=== PATIENT | female | born 1945 | race Caucasian/White ===

== ENCOUNTER 2016-11-17 10:49 | Inpatient (IN) | payer OTHER ==
[~2016-11-17] VITALS: Ht 167.6 cm; Wt 49.8 kg
[2016-11-17] MEDS ORDERED: LISI-538 PO (11:03)
[2016-11-17] MEDS ORDERED: SIMV20TA2 PO (11:03)
[2016-11-17] MEDS ORDERED: ASPI1TAB PO (11:03)
[2016-11-17] MEDS ORDERED: TOPR25TA PO (11:03)
[2016-11-17] MEDS ORDERED: AMLO5TAB2 PO (11:03)
[2016-11-17 11:41] LABS: BASO % 0.2 % (0.0-1.0); EOS # 0.2 K/mm3 (0.0-0.50); EOS % 1.3 % (0.0-3.0); LARGE UNSTAINED CELL # 0.1 K/mm3 (0.0-0.4); LARGE UNSTAINED CELL % 0.9 % (0.0-4.0); LYMPH # 1.1 K/mm3 (1.5-4.5); MEAN CORPUSCULAR HEMOGLOBIN 29.4 pg (27.0-33.0); MEAN CORPUSCULAR VOLUME 89.1 fl (80.0-96.0); MONO # 0.5 K/mm3 (0.0-0.8); MONO % 4.2 % (0.0-5.0); NEUTROPHILS # 9.7 K/mm3 (1.8-7.7); NEUTROPHILS % 84.2 % (36.0-66.0); PLATELET COUNT, AUTOMATED 246 k/mm3 (150-450); RED CELL DISTRIBUTION WIDTH 14.2 % (11.5-14.5); WHITE BLOOD COUNT 11.5 K/mm3 (4.0-10.0)
[2016-11-17 12:02] LABS: ALBUMIN 3.2 GM/DL (3.2-5.2); ALBUMIN/GLOBULIN RATIO 0.82 (1.00-1.93); ALKALINE PHOSPHATASE 73 U/L (45-117); ALT/SGPT 19 U/L (12-78); ANION GAP 7 MEQ/L (8-16); AST/SGOT 17 U/L (15-37); BILIRUBIN,DIRECT 0.1 MG/DL (0.0-0.2); BILIRUBIN,TOTAL 0.6 MG/DL (0.2-1.0); BLOOD UREA NITROGEN 11 MG/DL (7-18); CALCIUM LEVEL 9.4 MG/DL (8.8-10.2); CARBON DIOXIDE LEVEL 25 MEQ/L (21-32); CHLORIDE LEVEL 105 MEQ/L (98-107); CREATININE FOR GFR 0.57 MG/DL (0.55-1.02); GLOMERULAR FILTRATION RATE > 60.0 (>39); GLUCOSE, FASTING 92 MG/DL (83-110); POTASSIUM SERUM 3.4 MEQ/L (3.5-5.1); SODIUM LEVEL 137 MEQ/L (136-145); TOTAL PROTEIN 7.1 GM/DL (6.4-8.2)
[2016-11-17] MEDS ORDERED: NS 500 ML IV ONE (12:45)
[2016-11-17] MEDS ORDERED: hydrALAZINE INJ 20 MG/ML VIAL IV ONE (13:00)
[2016-11-17] MEDS ORDERED: NS 1,000 ML IV SCH (13:45)
[2016-11-17] MEDS ORDERED: SIMVASTATIN 20 MG TAB PO ONE (13:45)
--- NOTE | 2016-11-17 14:20 | HPE ---
DATE OF ADMISSION: 11/17/2016 71-year-old white female who presents to the emergency room with rectal bleeding. Symptoms began last evening. She had several bright red bloody bowel movements yesterday. She has not had any today. She does have abdominal cramping with the bowel movements. No fever or chills. No one else at home is sick. She had a similar episode about 6 weeks ago. She presented to [facility] and was sent to a [facility]. She was there for several days but she said nothing was done. She did not have a colonoscopy. The bleeding stopped spontaneously. Her white count is 11,500. Hemoglobin and hematocrit is 12.7 and 38. She is mildly orthostatic in the ER, but her blood pressure is elevated. She does have a history of hypertension. ALLERGIES: No known allergies to medication. MEDICATIONS: - Norvasc 5 mg a day - baby aspirin - lisinopril 40 mg - metoprolol 50 mg XL daily - simvastatin 20 mg PAST MEDICAL HISTORY: Hysterectomy. Fractured left hip. She says she has stents in both legs for peripheral vascular disease. She has had breast biopsies for benign disease. Cervical spine surgery. Hypertension. Hyperlipidemia. Previous gastrointestinal (GI) bleed 6 weeks ago. FAMILY HISTORY: This was not obtained. REVIEW OF SYSTEMS: GENERAL: She feels a little bit lightheaded when she stands. HEENT: Lightheadedness otherwise negative. She wears dentures. CARDIOPULMONARY: Negative. Despite her history of peripheral vascular disease, she has no known history of known coronary disease. She is not complaining of any chest pain or angina-like symptoms. She has been a smoker but denies shortness of breath. GASTROINTESTINAL (GI): As noted in the history of present illness. GENITOURINARY (): Negative. MUSCULOSKELETAL: Negative. VASCULAR: She does have stents in both legs. HEMATOLOGIC: Negative. PSYCH: Negative. DERM: Negative. ENDOCRINE: Negative. PHYSICAL EXAMINATION: VITAL SIGNS: 205/85, pulse is 84, respirations 16. GENERAL APPEARANCE: 71-year-old white female. No distress. She is very thin. HEENT: Sclerae anicteric. Conjunctivae without injection. Oropharynx is unremarkable. She wears dentures. CARDIAC: Was regular. She was not tachy. CHEST: Was clear to auscultation. ABDOMEN: She has got some left lower quadrant tenderness. No peritoneal signs. RECTAL EXAM: There was no stool in the rectal vault. She is wearing a pad that was stained with blood. EXTREMITIES: Are warm peripherally. Distal pulses are diminished in the feet. No clubbing, cyanosis or edema. NEURO: Intact. IMPRESSION/PLAN: 1. GI bleed. I suspect probably diverticular bleed. Dr. Pickard has been consulted. She appears to be hemodynamically stable and bleeding has seemed to have stopped. There is a shortage of PCU beds so we will be sending her to medical/surgical floor with close observation. 2. Hypertension. I have continued only her beta justin for now. 3. Peripheral vascular disease. 4. Hyperlipidemia. She continues on a statin. 5. Smoking history. The patient currently is still a smoker. She denies any pulmonary symptoms.
[2016-11-17 15:00] VITALS: BP 210/80
[2016-11-17 15:08] LABS: MEAN CORPUSCULAR HEMOGLOBIN 29.5 pg (27.0-33.0); MEAN CORPUSCULAR HGB CONC 33.3 g/dl (32.0-36.5); MEAN CORPUSCULAR VOLUME 88.6 fl (80.0-96.0); RED CELL DISTRIBUTION WIDTH 14.1 % (11.5-14.5); WHITE BLOOD COUNT 10.7 K/mm3 (4.0-10.0)
[2016-11-17] MEDS: METOPROLOL SUCC (TopROL XL) 50MG **XL** TAB PO SCH (15:26)
[2016-11-17] MEDS: KCL 20MEQ in NS 1000ML 1,000 ML IV SCH (16:04)
[2016-11-17] MEDS: LISINOPRIL 20 MG TAB PO SCH (16:04)
[2016-11-17 16:15] VITALS: BP 200/75
[2016-11-17 17:00] VITALS: BP 145/60
[2016-11-17 18:00] VITALS: BP 175/60
[2016-11-17] MEDS ORDERED: GOLYTELY SOLN 4000 ML BTL PO ONE (18:15)
--- NOTE | 2016-11-17 20:50 | CR ---
DATE OF CONSULTATION: 11/17/2016 REASON FOR CONSULTATION: GI bleed. HISTORY OF PRESENT ILLNESS: The patient is a 71-year-old female who presents to the ER with the rectal bleeding and lower abdominal crampy abdominal pains and weakness. She originally went to [facility] about 6 weeks ago. She was found have to GI bleeding and she was sent to [place] for colonoscopy. They kept here there for 3 days, never did any colonoscopy, wanted to wait 6 weeks to attempt it, so she was discharged home without any procedures. She did have a CT scan done at the time. She denies them telling her about any type of colitis or masses or any abnormalities on the CT scan. Within the last 6 weeks, she has not had any other problems. She had no nausea, vomiting, and no abdominal pain with an episode. Starting 2 days ago she started to have couple episodes of diarrhea, that turned into bright red bloody stools yesterday, and then she started having crampy abdominal pains last evening so she came into the emergency room for evaluation. In the ER her hemoglobin is at 12.7. She has had one more episode of bloody stools since she has been here in the hospital, they were very small and her stools yesterday were more of a maroon color and today is was bright red. Abdominal pains mainly in the lower abdomen, but it is crampy pain, nothing sharp no fevers, no chills. No problems with urination. No previous abdominal surgeries other than hysterectomy. No previous colonoscopy. She does drink a pot or two of coffee a day and she does smoke. But she denies any other risk factors for an upper GI bleed. ALLERGIES: None. MEDICATIONS: Please see med rec. PAST MEDICAL HISTORY: Hyperlipidemia, hypertension. PAST SURGICAL HISTORY: Hysterectomy, fracture left hip repair, bilateral femoral artery stents, breast biopsies, cervical spine surgery. FAMILY HISTORY: Noncontributory. SOCIAL HISTORY: Smokes pack a day. Denies any drug, alcohol abuse. PHYSICAL EXAMINATION: General : Alert and oriented times three. No acute distress. Vitals: Temperature 95, pulse 74, respirations 18, blood pressure 175/60, pulse ox 97% room air. HEENT: Pupils equal round react to light accommodation. Heart: S1-S2 regular rate and loss to auscultation bilaterally. Abdomen: Soft, nontender, nondistended. Bowel sounds positive. Extremities: No clubbing, cyanosis or edema. LABORATORY DATA: White count 10.7, hemoglobin 11.3, platelets 221, potassium 3.4, creatinine 0.57. ASSESSMENT/PLAN: The patient is 71-year-old female with a history of bright red blood in her stool and crampy abdominal pain presented to the ER for this bleeding. No previous history of colonoscopy. No family history of colon cancer, colon diseases. This is likely secondary to a lower rather than upper GI bleed. However with her significant history of smoking and caffeine abuse, we cannot rule out an upper GI source as well. Recommendation at this time is proceed with both upper and lower endoscopy. I have discussed the risks and benefits with the patient not limited to but including bleeding, infection, perforation. She understands and agrees and signed consent. She will be scheduled for 07:30 tomorrow morning.
[2016-11-17] MEDS: amLODIPine 10 MG TAB PO SCH (21:41)
[2016-11-17 22:00] VITALS: BP 180/72
[2016-11-18] VITALS (15 sets, daily range): BP systolic 133–195; BP diastolic 58–80
[2016-11-18] MEDS: KCL 20MEQ in NS 1000ML 1,000 ML IV SCH ×2 (01:45→11:45)
[2016-11-18 02:26] LABS: MEAN CORPUSCULAR HEMOGLOBIN 29.1 pg (27.0-33.0); MEAN CORPUSCULAR HGB CONC 32.1 g/dl (32.0-36.5); MEAN CORPUSCULAR VOLUME 90.5 fl (80.0-96.0); RED CELL DISTRIBUTION WIDTH 14.2 % (11.5-14.5); WHITE BLOOD COUNT 11.5 K/mm3 (4.0-10.0)
[2016-11-18] MEDS: LISINOPRIL 20 MG TAB PO SCH (05:56)
[2016-11-18 06:45] LABS: ANION GAP 8 MEQ/L (8-16); BLOOD UREA NITROGEN 7 MG/DL (7-18); CALCIUM LEVEL 8.3 MG/DL (8.8-10.2); CARBON DIOXIDE LEVEL 23 MEQ/L (21-32); CHLORIDE LEVEL 110 MEQ/L (98-107); CREATININE FOR GFR 0.42 MG/DL (0.55-1.02); GLOMERULAR FILTRATION RATE > 60.0 (>39); GLUCOSE, FASTING 82 MG/DL (83-110); POTASSIUM SERUM 3.6 MEQ/L (3.5-5.1); SODIUM LEVEL 141 MEQ/L (136-145)
[2016-11-18] MEDS ORDERED: MIDAZOLAM INJ 2 MG/2 ML VIAL (J2250) As Ordered ONE (07:02)
[2016-11-18] MEDS ORDERED: fentaNYL 100 MCG/2 ML INJECTION (J3010) As Ordered ONE (07:08)
[2016-11-18] MEDS ORDERED: LABETALOL HCL 100 MG/20 ML VIAL As Ordered ONE (08:14)
[2016-11-18] MEDS: amLODIPine 10 MG TAB PO SCH (09:40)
[2016-11-18] MEDS: METOPROLOL SUCC (TopROL XL) 50MG **XL** TAB PO SCH (09:42)
[2016-11-18] MEDS ORDERED: ISOVUE-370 76% 100ML VIAL (Q9967) As Ordered ONE (10:47)
--- NOTE | 2016-11-18 11:21 | RO ---
DATE OF PROCEDURE: 11/18/2016 PREOPERATIVE DIAGNOSIS: POSTOPERATIVE DIAGNOSIS: PROCEDURE: EGD, Colonoscopy with Biopsy and polypectomy SURGEON: Dr. Chavez Pickard [employer] AGENT: ANESTHESIA: IV Sedation CHIEF COMPLAINT: Hematochezia. HISTORY OF PRESENT ILLNESS: The patient is a 71-year-old female who had a recent history of bright red blood in her stool about 6 weeks ago who was seen in [facility] and sent to [place]. She was there for about 3 days and never had any endoscopy done or colonoscopy. Eventually, she was discharged home and told to have a colonoscopy 6 weeks afterwards. For the past few days, she started to have melanotic stools again and lower abdominal cramping so she came to the hospital for evaluation here and I was asked to evaluate her. Recommendation at this time is to proceed with esophagogastroduodenoscopy (EGD) and colonoscopy. The risks and the benefits of the procedure not limited to, but including bleeding, infection, perforation were discussed in detail with the patient and informed was obtained and the procedure was planned. PROCEDURE: The patient brought back to operating room eight after sufficient sedation. She was placed in left lateral decubitus position. A bite block was placed. Next, a time-out was done to confirm proper patient and proper procedure. Following that, a gastroscope was passed through the stomach into the second portion of the duodenum. There were no signs of any active bleeding or old bleeding in the duodenum. The scope was then brought back into the stomach prepyloric. There were a couple of areas that looked like healed ulcers. Otherwise, there was some mild gastritis. No other signs of any inflammation or masses in the stomach. The scope was then slowly withdrawn. There was a small hiatal hernia for about 3 cm, but no signs of irregularity of the GE junction. The scope was then removed. Next, a colonoscopy was performed. There was swelling and inflammation in the rectum starting at about 10 cm and extending up to about 35 cm. There is circumferential wall swelling, erythema and some superficial white patches. No distinct masses were identified. Biopsies were taken at 35 cm, 25 cm and 15 cm. There was also a polyp encountered at 35 cm about 5 mm in size that was taken off with a hot snare. The scope was passed all the way to level of the cecum. There were no other masses, polyps or wall irregularities encountered throughout the rest of colonoscopy. The scope was then removed. The patient was awakened from anesthesia and sent to the postanesthesia care unit (PACU) in stable condition. The plan will be to obtain a CT of abdomen and pelvis to rule out ischemic colitis and also will followup with pathology results. LAURENT
--- NOTE | 2016-11-18 12:57 | ECGEPIP ---
Stationary ECG Study [facility] Test Date: 2016-11-18 Pat Name: ARELI COPE Department: Room: [place] [address] Gender: F Header Set Up Operator: : [id number] Requested By: Jag Obrien Order Number: [id number] Reading MD: Victor Manuel Fam Measurements Intervals [place] Rate: 56 P: 74 [place]: 171 QRS: 51 QRSD: 97 T: 60 QT: 452 QTc: 440 Interpretive Statements SINUS BRADYCARDIA Comparison tracing not on file Electronically Signed On 11-18-2016 12:56:52 EDT by Victor Manuel Fam
[2016-11-18] MEDS ORDERED: **hydrALAZINE** 10 MG TAB PO SCH (13:00)
[2016-11-18 13:49] LABS: MEAN CORPUSCULAR HEMOGLOBIN 29.8 pg (27.0-33.0); MEAN CORPUSCULAR HGB CONC 33.3 g/dl (32.0-36.5); MEAN CORPUSCULAR VOLUME 89.3 fl (80.0-96.0); RED CELL DISTRIBUTION WIDTH 14.4 % (11.5-14.5); WHITE BLOOD COUNT 9.3 K/mm3 (4.0-10.0)
--- NOTE | 2016-11-18 13:53 | IPNPDOC ---
Subjective Date Seen The patient was seen on 11/18/16. Subjective Chief Complaint/HPI The patient is a 71-year-old female admitted with a reason for visit of Gi Bleed. Events since last encounter pt seen and examined, doing well, just had colonoscopy and egd done, no abd pain , no bm, no complaints Objective Physical Examination General Exam: Positive: No Acute Distress Eye Exam: Positive: PERRLA ENT Exam: Positive: Atraumatic, Mucous membr. moist/pink Chest Exam: Positive: Clear to auscultation, Normal air movement Heart Exam: Positive: Rate Normal Abdomen Exam: Positive: Normal bowel sounds, Soft Extremity Exam: Positive: Normal pulses, Negative: Clubbing, Cyanosis, Edema Assessment /Plan Problems (1) GI bleed Status: Acute Problem Text: * pt presented with history of rectal bleeding, bright red blood per rectum, she had a similar episode 6 weeks ago, CT scan was done at that time * pt states she get cramping abd pain with the bleeding but denies any abd pain today * currently hemodynamically stable, will continue to monitor * s/p EGD and colonoscopy by Dr Pickard * mild gastritis, and area of inflammation and edema in the colon, biopsies were taken and sent to pathology * CT angio is recommended to rule out ischemic colitis (2) HTN (hypertension) Status: Chronic Response to Treatment: Stable, Uncontrolled Problem Text: * pt is on metoprolol, Norvasc and lisinopril * will add hydralazine (3) HLD (hyperlipidemia) Status: Chronic Response to Treatment: Stable Problem Text: * will continue simvastatin 20mg daily (4) PVD (peripheral vascular disease) Status: Chronic Response to Treatment: Stable Problem Text: * s/p stenting in both legs (5) Tobacco abuse Status: Chronic Plan/VTE VTE Prophylaxis Ordered?: Yes VS, I&O, 24H, Fishbone Vital Signs/I&O Vital Signs Date Time Temp Pulse Resp B/P (MAP) Pulse Ox O2 Delivery O2 Flow Rate FiO2 11/18/16 12:10 97.8 55 16 185/75 (111) 99 Room Air 11/18/16 08:16 2 I&O- Last 24 Hours up to 6 AM 11/18/16 06:00 Intake Total 4100 ml Output Total 300 ml Balance 3800 ml Laboratory Data 24H LABS Laboratory Tests 2 11/18/16 06:16: Anion Gap 8, Glomerular Filtration Rate > 60.0, Blood Urea Nitrogen 7, Creatinine 0.42L, Sodium Level 141, Potassium Level 3.6, Chloride Level 110H, Carbon Dioxide Level 23, Calcium Level 8.3L CBC/BMP Laboratory Tests 11/17/16 14:15 Red Blood Count 3.82 L, Mean Corpuscular Volume 88.6, Mean Corpuscular Hemoglobin 29.5, Mean Corpuscular Hemoglobin Concent 33.3, Red Cell Distribution Width 14.1 11/18/16 01:56 Red Blood Count 3.86 L, Mean Corpuscular Volume 90.5, Mean Corpuscular Hemoglobin 29.1, Mean Corpuscular Hemoglobin Concent 32.1, Red Cell Distribution Width 14.2 11/18/16 06:16 Calcium Level 8.3 L HALEY PARR DO Nov 18, 2016 13:53
--- NOTE | 2016-11-18 14:52 | REP ---
CT ANGIOGRAM OF THE ABDOMEN: With IV contrast. HISTORY: Ischemic colitis. CT contrast dose: 100 mL of Isovue [address] TECHNIQUE: Helical scanning is acquired. 3 mm axial images are reformatted. Coronal and sagittal multiplanar re-formation images are generated. Thick slab coronal maximal intensity projection images are generated and color 3D surface rendered sequence is acquired and reviewed rotationally about the vertical axis. Curved axis multiplanar re-formation images are generated through the superior mesenteric artery and celiac axes. NONVASCULAR CT FINDINGS: Left hip is replaced. There is profound atrophy of the right kidney. The main pancreatic duct is dilated. This appears to be related to mass effect due to the abdominal aortic aneurysm. No definite pancreatic mass lesion is seen. There is marked diffuse osteopenia. Advanced degenerative disc disease is seen at the L4-5 intervertebral disc level. VASCULAR FINDINGS: There are bilateral common iliac artery stents in place. There is marked atherosclerotic irregularity throughout the aorta. The distal thoracic aorta is normal in caliber with calcific and soft plaquing. There is an infrarenal abdominal aortic aneurysm with a large amount of mural thrombus circumferentially noted. The aneurysm measures 4.3 cm in greatest anteroposterior dimension. There is aortic luminal stenosis through the aneurysm. This is 75%. There is also multifocal aortic stenosis in the suprarenal abdominal aorta which shows severe atherosclerotic plaquing and calcific irregularity and calcific plaquing as well as luminal narrowing. There is a high-grade stenosis of the right renal artery origin and an occlusion of the mid right renal artery is seen with reconstitution. The left main renal artery origin is patent without high-grade stenosis. The left common iliac artery and stent are occluded. The left external and internal iliac arteries are occluded. There appears to be reconstitution of the common femoral artery on the left although visualization of this is somewhat impaired by spray artifact in the left hip components. The right proximal external iliac artery is very stenotic due to calcific plaquing at the end of the stent. The celiac axis is patent. There is some calcific plaquing and 60% stenosis is seen at the origin of the celiac axis. The superior mesenteric axis origin shows marked stenosis, 85-90%. The superior mesenteric artery arises from the markedly irregular calcific plaquing at the narrowed suprarenal aorta. There is multifocal plaquing in the patent superior mesenteric artery. No other high-grade stenosis is seen. I do not see the origin of the inferior mesenteric artery. IMPRESSION: 1. 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 2. 85-90% stenosis at the superior mesenteric artery. 3. The YIN appears to be occluded in association with the infrarenal abdominal aortic aneurysm. Right renal artery is occluded and the right kidney is markedly atrophic. 4. Bilateral common iliac artery stents in place. Left iliac stent and left external iliac and internal iliac arteries are occluded. There is a stenosis in the proximal external iliac artery on the right at the and of the existing stent. 5. 75% stenosis of the aorta through the aneurysm. There are arterial collaterals visible in the anterior abdominal wall bilaterally. These appear to have reconstitute the left common femoral artery. Signed by Josiah Alcala MD 11/18/2016 03:18 P
[2016-11-18] MEDS: hydrALAZINE INJ 20 MG/ML VIAL IV SCH (16:08)
[2016-11-19] VITALS (11 sets, daily range): BP systolic 116–169; BP diastolic 48–87
[2016-11-19 01:39] LABS: MEAN CORPUSCULAR HEMOGLOBIN 29.8 pg (27.0-33.0); MEAN CORPUSCULAR VOLUME 90.3 fl (80.0-96.0); RED CELL DISTRIBUTION WIDTH 14.3 % (11.5-14.5); WHITE BLOOD COUNT 7.4 K/mm3 (4.0-10.0)
[2016-11-19 05:50] LABS: ANION GAP 15 MEQ/L (8-16); BLOOD UREA NITROGEN 10 MG/DL (7-18); CALCIUM LEVEL 8.4 MG/DL (8.8-10.2); CARBON DIOXIDE LEVEL 18 MEQ/L (21-32); CHLORIDE LEVEL 107 MEQ/L (98-107); CREATININE FOR GFR 0.41 MG/DL (0.55-1.02); GLOMERULAR FILTRATION RATE > 60.0 (>39); GLUCOSE, FASTING 48 MG/DL (83-110); POTASSIUM SERUM 3.4 MEQ/L (3.5-5.1); SODIUM LEVEL 140 MEQ/L (136-145)
[2016-11-19] MEDS: METOPROLOL SUCC (TopROL XL) 50MG **XL** TAB PO SCH (09:00)
[2016-11-19] MEDS: hydrALAZINE INJ 20 MG/ML VIAL IV SCH ×3 (09:57→16:00)
[2016-11-19] MEDS: LISINOPRIL 20 MG TAB PO SCH (10:00)
[2016-11-19] MEDS: amLODIPine 10 MG TAB PO SCH (10:02)
[2016-11-19] MEDS ORDERED: fentaNYL 100 MCG/2 ML INJECTION (J3010) As Ordered ONE (12:29)
[2016-11-19] MEDS ORDERED: ISOVUE-300 61% 50ML VIAL (Q9967) As Ordered ONE (12:31)
[2016-11-19] MEDS ORDERED: MIDAZOLAM INJ 2 MG/2 ML VIAL (J2250) As Ordered ONE ×2 (12:32→13:57)
[2016-11-19] MEDS ORDERED: HEPARIN 1,000 UNITS/ML 10ML VIAL (FOR RADIOLOGY& DIALYSIS ONLY) As Ordered ONE (13:30)
[2016-11-19] MEDS ORDERED: MORPHINE 10 MG/ML 1ML VIAL As Ordered ONE (13:48)
[2016-11-19] MEDS: SLF 3 ML SYR IV SCH ×2 (14:00→22:18)
[2016-11-19] MEDS ORDERED: SLF 3 ML SYR IV PRN (14:15)
[2016-11-19 14:16] LABS: CARCINOEMBRYONIC ANTIGEN 5.1 NG/ML (<2.5)
--- NOTE | 2016-11-19 15:09 | IPNPDOC ---
Subjective Date Seen The patient was seen on 11/19/16. Subjective Chief Complaint/HPI The patient is a 71-year-old female admitted with a reason for visit of Gi Bleed. Events since last encounter pt seen and examined, abd pain is controlled, Constitutional: Denies: Chills, Fever, Night Sweats Objective Physical Examination General Exam: Positive: No Acute Distress Eye Exam: Positive: PERRLA ENT Exam: Positive: Atraumatic, Mucous membr. moist/pink Chest Exam: Positive: Clear to auscultation, Normal air movement Heart Exam: Positive: Rate Normal Abdomen Exam: Positive: Normal bowel sounds, Soft Extremity Exam: Positive: Normal pulses, Negative: Clubbing, Cyanosis, Edema Assessment /Plan Problems (1) GI bleed Status: Acute Problem Text: * pt presented with history of rectal bleeding, bright red blood per rectum, she had a similar episode 6 weeks ago, * pt states she get cramping abd pain with the bleeding but denies any abd pain today * currently hemodynamically stable, will continue to monitor * s/p EGD and colonoscopy by Dr Pickard * mild gastritis, and area of inflammation and edema in the colon, biopsies were taken and sent to pathology * CT angio was done which showed multiple vessel stenosis * Dr pitts was consulted he will take pt to angio today (2) HTN (hypertension) Status: Chronic Response to Treatment: Stable, Uncontrolled Problem Text: * pt is on metoprolol, Norvasc and lisinopril * will add hydralazine (3) HLD (hyperlipidemia) Status: Chronic Response to Treatment: Stable Problem Text: * will continue simvastatin 20mg daily (4) PVD (peripheral vascular disease) Status: Chronic Response to Treatment: Stable Problem Text: * s/p stenting in both legs (5) Tobacco abuse Status: Chronic Plan/VTE VTE Prophylaxis Ordered?: Yes VS, I&O, 24H, Fishbone Vital Signs/I&O Vital Signs Date Time Temp Pulse Resp B/P (MAP) Pulse Ox O2 Delivery O2 Flow Rate FiO2 11/19/16 12:00 98.6 69 20 160/60 (93) 100 Room Air 11/18/16 08:16 2 I&O- Last 24 Hours up to 6 AM 11/19/16 05:59 Intake Total 1040 ml Output Total 900 ml Balance 140 ml Laboratory Data 24H LABS Laboratory Tests 2 11/19/16 05:28: Anion Gap 15, Glomerular Filtration Rate > 60.0, Blood Urea Nitrogen 10, Creatinine 0.41L, Sodium Level 140, Potassium Level 3.4L, Chloride Level 107, Carbon Dioxide Level 18L, Calcium Level 8.4L CBC/BMP Laboratory Tests 11/19/16 01:29 Red Blood Count 3.85 L, Mean Corpuscular Volume 90.3, Mean Corpuscular Hemoglobin 29.8, Mean Corpuscular Hemoglobin Concent 33.0, Red Cell Distribution Width 14.3 11/19/16 05:28 Calcium Level 8.4 L HALEY PARR DO Nov 19, 2016 15:09
[2016-11-20 04:45] VITALS: BP 155/71
[2016-11-20 05:36] LABS: MEAN CORPUSCULAR HEMOGLOBIN 30.4 pg (27.0-33.0); MEAN CORPUSCULAR HGB CONC 33.7 g/dl (32.0-36.5); MEAN CORPUSCULAR VOLUME 90.2 fl (80.0-96.0); RED CELL DISTRIBUTION WIDTH 14.4 % (11.5-14.5); WHITE BLOOD COUNT 5.9 K/mm3 (4.0-10.0)
[2016-11-20 05:42] LABS: ANION GAP 10 MEQ/L (8-16); BLOOD UREA NITROGEN 6 MG/DL (7-18); CALCIUM LEVEL 8.3 MG/DL (8.8-10.2); CARBON DIOXIDE LEVEL 23 MEQ/L (21-32); CHLORIDE LEVEL 107 MEQ/L (98-107); CREATININE FOR GFR 0.41 MG/DL (0.55-1.02); GLOMERULAR FILTRATION RATE > 60.0 (>39); GLUCOSE, FASTING 74 MG/DL (83-110); POTASSIUM SERUM 3.2 MEQ/L (3.5-5.1); SODIUM LEVEL 140 MEQ/L (136-145)
[2016-11-20] MEDS: SLF 3 ML SYR IV SCH ×3 (06:53→23:41)
[2016-11-20 08:00] VITALS: BP 150/71
[2016-11-20] MEDS: hydrALAZINE INJ 20 MG/ML VIAL IV SCH ×4 (08:00→23:54)
[2016-11-20] MEDS ORDERED: KCL 20MEQ IN 100ML SWI (KRUN) 20 MEQ in APPROPRIATE DILUENT 1 EA IV ONE ×2 (08:00)
[2016-11-20] MEDS: LISINOPRIL 20 MG TAB PO SCH (09:07)
[2016-11-20] MEDS: METOPROLOL SUCC (TopROL XL) 50MG **XL** TAB PO SCH (09:07)
[2016-11-20] MEDS: amLODIPine 10 MG TAB PO SCH (09:07)
[2016-11-20] MEDS: KCL 10MEQ IN 100ML SWI (KRUN) 100 ML IV SCH ×2 (09:08→10:28)
[2016-11-20 12:00] VITALS: BP 131/66
[2016-11-20 12:26] LABS: MAGNESIUM LEVEL 1.6 MG/DL (1.8-2.4); POTASSIUM SERUM 3.4 MEQ/L (3.5-5.1)
--- NOTE | 2016-11-20 13:10 | IPNPDOC ---
Subjective Date Seen The patient was seen on 11/20/16. Subjective Chief Complaint/HPI The patient is a 71-year-old female admitted with a reason for visit of Gi Bleed. Events since last encounter pt seen and examined, denies any abd pain, tolerating clear liquid diet, she was taken for an angiogram last night but they were unable to place stent in stenosed area. will reattempt next week, Constitutional: Denies: Chills, Fever, Night Sweats Objective Physical Examination General Exam: Positive: No Acute Distress Eye Exam: Positive: PERRLA ENT Exam: Positive: Atraumatic, Mucous membr. moist/pink Chest Exam: Positive: Clear to auscultation, Normal air movement Heart Exam: Positive: Rate Normal Abdomen Exam: Positive: Normal bowel sounds, Soft Extremity Exam: Positive: Normal pulses, Negative: Clubbing, Cyanosis, Edema Assessment /Plan Problems (1) GI bleed Status: Acute Problem Text: * pt presented with history of rectal bleeding, bright red blood per rectum, she had a similar episode 6 weeks ago, * pt states she get cramping abd pain with the bleeding * currently hemodynamically stable, will continue to monitor * s/p EGD and colonoscopy by Dr Pickard * mild gastritis, and area of inflammation and edema in the colon, biopsies were taken and sent to pathology * CT angio was done which showed multiple vessel stenosis * Dr raymond was consulted angio was done on 11/19 but were unable to stent the stenosis * angiogram will be reattempted next week, with different size stenting * will start pt on regular diet and if she tolerates she can be discharged in am and f/u with Dr Raymond outpt (2) HTN (hypertension) Status: Chronic Response to Treatment: Stable, Uncontrolled Problem Text: * pt is on metoprolol, Norvasc and lisinopril * blood pressure has been stable, has not been needing any PRN hydralazine (3) HLD (hyperlipidemia) Status: Chronic Response to Treatment: Stable Problem Text: * will continue simvastatin 20mg daily (4) PVD (peripheral vascular disease) Status: Chronic Response to Treatment: Stable Problem Text: * s/p stenting in both legs (5) Tobacco abuse Status: Chronic Plan/VTE VTE Prophylaxis Ordered?: Yes VS, I&O, 24H, Fishbone Vital Signs/I&O Vital Signs Date Time Temp Pulse Resp B/P (MAP) Pulse Ox O2 Delivery O2 Flow Rate FiO2 11/20/16 12:00 99.6 69 18 131/66 (87) 96 Room Air 11/18/16 08:16 2 I&O- Last 24 Hours up to 6 AM 11/20/16 06:00 Intake Total 1590 ml Output Total 600 ml Balance 990 ml Laboratory Data 24H LABS Laboratory Tests 2 11/20/16 05:13: Anion Gap 10, Glomerular Filtration Rate > 60.0, Blood Urea Nitrogen 6L, Creatinine 0.41L, Sodium Level 140, Potassium Level 3.2L, Chloride Level 107, Carbon Dioxide Level 23, Calcium Level 8.3L 11/20/16 12:06: Magnesium Level 1.6L CBC/BMP Laboratory Tests 11/20/16 05:13 Red Blood Count 3.47 L, Mean Corpuscular Volume 90.2, Mean Corpuscular Hemoglobin 30.4, Mean Corpuscular Hemoglobin Concent 33.7, Red Cell Distribution Width 14.4, Calcium Level 8.3 L 11/20/16 12:06 HALEY PARR DO Nov 20, 2016 13:10
[2016-11-20] MEDS ORDERED: POTASSIUM CHLORIDE 10 MEQ SR TABLET PO ONE (14:00)
[2016-11-20] MEDS ORDERED: MAG SULF 1GM/100ML (MAG RUN) 1 GM in APPROPRIATE DILUENT 1 EA IV ONE (14:00)
[2016-11-20 16:00] VITALS: BP 108/57
[2016-11-20 19:57] VITALS: BP 177/70
[2016-11-20 23:59] VITALS: BP 135/60
[2016-11-21] VITALS (7 sets, daily range): BP systolic 111–192; BP diastolic 50–77
[2016-11-21 05:12] LABS: MEAN CORPUSCULAR HEMOGLOBIN 29.9 pg (27.0-33.0); MEAN CORPUSCULAR VOLUME 87.9 fl (80.0-96.0); RED CELL DISTRIBUTION WIDTH 14.4 % (11.5-14.5); WHITE BLOOD COUNT 7.2 K/mm3 (4.0-10.0)
[2016-11-21 05:21] LABS: ANION GAP 10 MEQ/L (8-16); BLOOD UREA NITROGEN 7 MG/DL (7-18); CALCIUM LEVEL 8.3 MG/DL (8.8-10.2); CARBON DIOXIDE LEVEL 27 MEQ/L (21-32); CHLORIDE LEVEL 105 MEQ/L (98-107); CREATININE FOR GFR 0.42 MG/DL (0.55-1.02); GLOMERULAR FILTRATION RATE > 60.0 (>39); GLUCOSE, FASTING 118 MG/DL (83-110); MAGNESIUM LEVEL 1.7 MG/DL (1.8-2.4); POTASSIUM SERUM 3.5 MEQ/L (3.5-5.1); SODIUM LEVEL 142 MEQ/L (136-145)
[2016-11-21] MEDS: hydrALAZINE INJ 20 MG/ML VIAL IV SCH ×3 (06:03→23:45)
[2016-11-21] MEDS: SLF 3 ML SYR IV SCH ×3 (06:06→23:48)
[2016-11-21] MEDS ORDERED: MAG SULF 1GM/100ML (MAG RUN) 1 GM in APPROPRIATE DILUENT 1 EA IV ONE (06:15)
--- NOTE | 2016-11-21 08:26 | IPNPDOC ---
Subjective Date Seen The patient was seen on 11/21/16. Subjective Chief Complaint/HPI The patient is a 71-year-old female admitted with a reason for visit of Gi Bleed. Events since last encounter pt seen and examined, doing well, denies any abd pain, states she tolerated diet yesterday, per nursing however, pt had pain in her lower back over a sacral ulcer and leg cramps, nurse states she had a hard time moving or going to the bathroom on her own. when asked again she stated she only had pain over her sacral ulcer area Constitutional: Denies: Chills, Fever, Night Sweats Cardiovascular: Denies: Chest Pain, Palpitations, Orthopnea, Paroxysmal Noc. Dyspnea, Lt Headedness Gastrointestinal: Denies: Nausea, Vomiting, Abdominal Pain, Diarrhea, Constipation Objective Physical Examination General Exam: Positive: No Acute Distress Eye Exam: Positive: PERRLA ENT Exam: Positive: Atraumatic, Mucous membr. moist/pink Chest Exam: Positive: Clear to auscultation, Normal air movement Heart Exam: Positive: Rate Normal Abdomen Exam: Positive: Normal bowel sounds, Soft Extremity Exam: Positive: Normal pulses, Negative: Clubbing, Cyanosis, Edema Skin Exam: Positive: Breakdown (stage 2 sacral ulcer) Assessment /Plan Problems (1) GI bleed Status: Acute Response to Treatment: Stable Problem Text: * pt presented with history of rectal bleeding, bright red blood per rectum, she had a similar episode 6 weeks ago, * pt states she get cramping abd pain with the bleeding * currently hemodynamically stable, will continue to monitor * s/p EGD and colonoscopy by Dr Pickard * mild gastritis, and area of inflammation and edema in the colon, biopsies were taken and sent to pathology * CT angio was done which showed multiple vessel stenosis * Dr raymond was consulted angio was done on 11/19 but were unable to stent the stenosis * angiogram will be reattempted next week, with different size stenting * pt tolerated diet yesterday with no pain (2) HTN (hypertension) Status: Chronic Response to Treatment: Stable, Uncontrolled Problem Text: * pt is on metoprolol, Norvasc and lisinopril * blood pressure has been stable, (3) HLD (hyperlipidemia) Status: Chronic Response to Treatment: Stable Problem Text: * will continue simvastatin 20mg daily (4) PVD (peripheral vascular disease) Status: Chronic Response to Treatment: Stable Problem Text: * s/p stenting in both legs * pt has stenosis in her renal areteries, aorta, mesenteric arteries * will need stenting to her mesenteric and celiac arteries this week * will need to f/u half-way with Dr Raymond for the rest of her vascular disease (5) Tobacco abuse Status: Chronic (6) Sacral decubitus ulcer, stage II Status: Chronic Problem Text: * present on admission * pt states she sits in front of the TV for long periods of time * dressing changes per nursing (7) Gait instability Status: Acute Problem Text: * will request home safety eval from physical therapy Plan/VTE VTE Prophylaxis Ordered?: Yes VS, I&O, 24H, Fishbone Vital Signs/I&O Vital Signs Date Time Temp Pulse Resp B/P (MAP) Pulse Ox O2 Delivery O2 Flow Rate FiO2 11/21/16 06:03 192/77 11/21/16 04:45 100.0 72 18 96 Room Air 11/18/16 08:16 2 I&O- Last 24 Hours up to 6 AM 11/21/16 06:00 Intake Total 1260 ml Output Total 300 ml Balance 960 ml Laboratory Data 24H LABS Laboratory Tests 2 11/20/16 12:06: Magnesium Level 1.6L 11/21/16 04:36: Magnesium Level 1.7L, Anion Gap 10, Glomerular Filtration Rate > 60.0, Blood Urea Nitrogen 7, Creatinine 0.42L, Sodium Level 142, Potassium Level 3.5, Chloride Level 105, Carbon Dioxide Level 27, Calcium Level 8.3L CBC/BMP Laboratory Tests 11/20/16 12:06 11/21/16 04:36 Red Blood Count 3.85 L, Mean Corpuscular Volume 87.9, Mean Corpuscular Hemoglobin 29.9, Mean Corpuscular Hemoglobin Concent 34.0, Red Cell Distribution Width 14.4, Calcium Level 8.3 L HALEY PARR DO Nov 21, 2016 08:26
[2016-11-21] MEDS: METOPROLOL SUCC (TopROL XL) 50MG **XL** TAB PO SCH (09:58)
[2016-11-21] MEDS: LISINOPRIL 20 MG TAB PO SCH (09:58)
[2016-11-21] MEDS: amLODIPine 10 MG TAB PO SCH (09:58)
[2016-11-21] MEDS ORDERED: LIDOCAINE 5% (LIDODERM) PATCH TD ONE (14:00)
[2016-11-21] MEDS: NS 1,000 ML IV SCH (15:09)
[2016-11-21] MEDS ORDERED: **NOTE PATIENT COMMENT** MISC XX ONE (21:00)
[2016-11-22 04:13] VITALS: BP 168/62
[2016-11-22] MEDS: SLF 3 ML SYR IV SCH ×2 (05:05→11:00)
[2016-11-22] MEDS: NS 1,000 ML IV SCH (05:05)
[2016-11-22 05:36] LABS: MEAN CORPUSCULAR HEMOGLOBIN 29.6 pg (27.0-33.0); MEAN CORPUSCULAR HGB CONC 32.8 g/dl (32.0-36.5); MEAN CORPUSCULAR VOLUME 90.2 fl (80.0-96.0); RED CELL DISTRIBUTION WIDTH 14.2 % (11.5-14.5); WHITE BLOOD COUNT 5.6 K/mm3 (4.0-10.0)
[2016-11-22 06:00] LABS: ANION GAP 6 MEQ/L (8-16); BLOOD UREA NITROGEN 5 MG/DL (7-18); CALCIUM LEVEL 8.4 MG/DL (8.8-10.2); CARBON DIOXIDE LEVEL 27 MEQ/L (21-32); CHLORIDE LEVEL 108 MEQ/L (98-107); CREATININE FOR GFR 0.36 MG/DL (0.55-1.02); GLOMERULAR FILTRATION RATE > 60.0 (>39); GLUCOSE, FASTING 95 MG/DL (83-110); MAGNESIUM LEVEL 1.9 MG/DL (1.8-2.4); POTASSIUM SERUM 3.5 MEQ/L (3.5-5.1); SODIUM LEVEL 141 MEQ/L (136-145)
[2016-11-22 07:30] VITALS: BP 134/63
[2016-11-22] MEDS: hydrALAZINE INJ 20 MG/ML VIAL IV SCH ×2 (08:00→16:48)
[2016-11-22] MEDS: amLODIPine 10 MG TAB PO SCH (09:13)
[2016-11-22] MEDS: METOPROLOL SUCC (TopROL XL) 50MG **XL** TAB PO SCH (09:13)
[2016-11-22] MEDS: LISINOPRIL 20 MG TAB PO SCH (09:14)
--- NOTE | 2016-11-22 11:06 | IPNPDOC ---
Date Seen The patient was seen on 11/22/16. Progress Note SUBJECTIVE: Patient tells me that she is feeling much better today, she tells me that her she is not having any abdominal pain. The patient tells me that she had breakfast this morning and did not have any nausea or vomiting or belly pain she has not had any diarrhea. She is feeling altogether much better OBJECTIVE PHYSICAL EXAMINATION: VITAL SIGNS: Please see below. GENERAL: Slim elderly female lying in bed at a 30 angle she does not appear to be in any acute distress whatsoever HEENT: Pupils equally round reactive to light she appears mildly pale CARDIOVASCULAR: S1-S2. RESPIRATORY: Clear to auscultation. ABDOMINAL: Audible bruit bowel sounds present abdomen soft and nontender EXTREMITIES: Clubbing cyanosis or edema she has a sacral decubitus ulcer NEUROLOGICAL: No focal deficits spontaneously moves all 4 extremities and cranial nerves are intact LABORATORY DATA: Please see below. MICROBIOLOGY: Please see below. IMAGING: CT angiography from November 18: 1. 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 2. 85-90% stenosis at the superior mesenteric artery. 3. The YIN appears to be occluded in association with the infrarenal abdominal aortic aneurysm. Right renal artery is occluded and the right kidney is markedly atrophic. 4. Bilateral common iliac artery stents in place. Left iliac stent and left external iliac and internal iliac arteries are occluded. There is a stenosis in the proximal external iliac artery on the right at the and of the existing stent. 5. 75% stenosis of the aorta through the aneurysm. There are arterial collaterals visible in the anterior abdominal wall bilaterally. These appear to have reconstitute the left common femoral artery. 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 PROBLEMS: (1) GI bleed Status: Acute Response to Treatment: Stable Problem Text: Secondary to mesenteric ischemia she does have some acute blood loss anemia which is mild. General surgery and vascular surgeries help also greatly appreciated. She'll have follow-up pathology with Dr. Pickard the outpatient setting. In regards to her significant vascular atherosclerotic disease Dr. Raymond is attempting to take the patient back to the OR in the coming days to try some placement of smaller stents in order to improve her symptoms. At this time the patient is improving clinically however I suspect will be relatively short-lived without more definitive intervention and as such she remains in hospital. 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 Given her likely for watershed infarction and significant vascular disease at this time I will hold off on attempting to further optimize her blood pressure and allow for permissive hypertension. In addition she is receiving when necessary hydralazine with discontinuing IV fluids I suspect her blood pressure may improve (3) HLD (hyperlipidemia) Status: Chronic Response to Treatment: Stable Problem Text: Will resume her home simvastatin at this time (4) PVD (peripheral vascular disease) Status: Chronic Response to Treatment: Stable Problem Text: Stable the patient does have some intermittent cramping I suspect related to claudication to the history of stenting and has still has significant disease she'll require long-term follow-up with Dr. Raymond from vascular surgery (5) Tobacco abuse Status: Chronic cessation counseling provided (6) Sacral decubitus ulcer, stage II Status: Chronic Problem Text: Present at the time of admission foam dressing at this time frequent turning (7) Gait instability Status: Resolved Problem Text: Patient has been cleared by physical therapy DISPOSITION: Improving we'll continue to monitor following vascular intervention she would likely require close outpatient follow-up with both vascular and general surgery. VS, I&O, 24H, Fishbone Vital Signs/I&O Vital Signs Date Time Temp Pulse Resp B/P (MAP) Pulse Ox O2 Delivery O2 Flow Rate FiO2 11/22/16 09:13 68 134/63 11/22/16 07:30 98.6 20 97 Room Air 11/18/16 08:16 2 I&O- Last 24 Hours up to 6 AM 11/22/16 06:00 Intake Total 1180 ml Output Total 1200 ml Balance -20 ml Laboratory Data 24H LABS Laboratory Tests 2 11/22/16 04:45: Anion Gap 6L, Glomerular Filtration Rate > 60.0, Blood Urea Nitrogen 5L, Creatinine 0.36L, Sodium Level 141, Potassium Level 3.5, Chloride Level 108H, Carbon Dioxide Level 27, Calcium Level 8.4L, Magnesium Level 1.9 CBC/BMP Laboratory Tests 11/22/16 04:45 Red Blood Count 3.60 L, Mean Corpuscular Volume 90.2, Mean Corpuscular Hemoglobin 29.6, Mean Corpuscular Hemoglobin Concent 32.8, Red Cell Distribution Width 14.2, Calcium Level 8.4 L Microbiology Microbiology 11/21/16 Blood Culture, Received Pending 11/21/16 Blood Culture, Received Pending GABRIELA COVINGTON MD Nov 22, 2016 11:06
[2016-11-22] MEDS ORDERED: ACETAMINOPHEN 325 MG TAB PO PRN (11:15)
[2016-11-22] MEDS: ACETAMINOPHEN TAB 650MG DOSE (2X325MG) PO PRN (11:35)
[2016-11-22] MEDS: SIMVASTATIN 20 MG TAB PO SCH (11:35)
[2016-11-22 12:00] VITALS: BP 154/82
[2016-11-22 16:00] VITALS: BP 160/72
[2016-11-22 19:15] VITALS: BP 148/66
[2016-11-22 23:44] VITALS: BP 168/72
[2016-11-23] MEDS: SLF 3 ML SYR IV SCH ×2 (00:02→06:35)
[2016-11-23] MEDS: hydrALAZINE INJ 20 MG/ML VIAL IV SCH ×2 (00:02→08:00)
[2016-11-23] MEDS: ACETAMINOPHEN TAB 650MG DOSE (2X325MG) PO PRN (01:26)
[2016-11-23 04:10] VITALS: BP 142/65
[2016-11-23 04:33] LABS: MEAN CORPUSCULAR HEMOGLOBIN 29.4 pg (27.0-33.0); MEAN CORPUSCULAR HGB CONC 33.1 g/dl (32.0-36.5); RED CELL DISTRIBUTION WIDTH 14.4 % (11.5-14.5); WHITE BLOOD COUNT 6.4 K/mm3 (4.0-10.0)
[2016-11-23 04:50] LABS: ANION GAP 5 MEQ/L (8-16); BLOOD UREA NITROGEN 9 MG/DL (7-18); CALCIUM LEVEL 8.5 MG/DL (8.8-10.2); CARBON DIOXIDE LEVEL 28 MEQ/L (21-32); CHLORIDE LEVEL 105 MEQ/L (98-107); CREATININE FOR GFR 0.41 MG/DL (0.55-1.02); GLOMERULAR FILTRATION RATE > 60.0 (>39); GLUCOSE, FASTING 100 MG/DL (83-110); MAGNESIUM LEVEL 1.9 MG/DL (1.8-2.4); POTASSIUM SERUM 3.4 MEQ/L (3.5-5.1); SODIUM LEVEL 138 MEQ/L (136-145)
[2016-11-23 07:35] VITALS: BP 109/55
[2016-11-23] MEDS: LISINOPRIL 20 MG TAB PO SCH (08:57)
[2016-11-23 08:58] VITALS: BP 109/55
[2016-11-23] MEDS: SIMVASTATIN 20 MG TAB PO SCH (08:58)
[2016-11-23] MEDS: amLODIPine 10 MG TAB PO SCH (08:58)
[2016-11-23] MEDS: METOPROLOL SUCC (TopROL XL) 50MG **XL** TAB PO SCH (08:58)
[2016-11-23] MEDS ORDERED: METO-207 PO (09:37)
[2016-11-23] MEDS ORDERED: AMLO10TA2 PO (09:37)
--- NOTE | 2016-11-23 23:45 | DSES ---
DATE OF ADMISSION: 11/17/2016 DATE OF DISCHARGE: 11/23/2016 DISCHARGE DIAGNOSIS: 1. Mesenteric ischemia SECONDARY DIAGNOSIS: 1. Gastrointestinal (GI) bleed. 2. Acute blood loss anemia. 3. Peripheral vascular disease. 4. Dyslipidemia. 5. Tobacco abuse. 6. Sacral decubitus ulcer, stage III, present at the time of admission. 7. Colon polyp. PROCEDURES: The patient did have a colonoscopy by Dr. Pickard on 11/18/2016 and enoscopy which revealed mild gastritis, a small hiatal hernia, polypectomy. Other procedures: The patient was seen Dr. Bravo of vascular surgery, who attempted to place stents related to mesenteric ischemia. However, they were unable to be passed. HOSPITAL COURSE: The patient is a 71-year-old female, who initially presented with gastrointestinal (GI) bleed with rectal bleeding. She had an episode six months earlier that was associated with crampy abdominal pain. She was seen in consultation by Dr. Pickard and Dr. Roberson of vascular surgery. She had the colonoscopy and endoscopy that did not reveal an obvious source. It was later discovered that she was suffering from mesenteric ischemia and ischemic colitis. She had a CT angiography which revealed 60% stenosis at the origin of the celiac axis, 85 to 90% stenosis at the superior mesenteric artery. The YIN appear to be included, associated with infrarenal abdominal aortic aneurysm, as well as right renal artery occluded and right kidney atrophic. She did have stents in place in her bilateral common iliac arteries. The left iliac stent and left iliac external were occluded. There was 75% stenosis of the aorta through the aneurysm, but there were arterial collaterals visible in the anterior abdominal wall bilaterally, which reconstituted the left common femoral artery. The patient's symptoms gradually resolved, which she was able to tolerate a diet without colicky abdominal pain and no further gastrointestinal (GI) bleeding with a stable hemoglobin and hematocrit, up to the point that she requested to go home. At the time of discharge, Dr. Bravo is awaiting the arrival of smaller stents to re-attempt stenting of her significant vascular disease. SUBJECTIVE: Today, the patient tells me she is feeling well. She has no abdominal pain. She has not been having no diarrhea, no blood in her stool, no nausea or vomiting. OBJECTIVE: VITAL SIGNS: Temperature 97.7, pulse 60, respiratory rate 18, blood pressure (BP) 109/55, oxygen saturation 96% on room air. GENERAL: She is a frail elderly female, sitting up in a recliner. She does not appear to be in any acute distress whatsoever. HEENT: Cranial nerves II/XII grossly intact. She has moist mucous membranes. Elevated central venous pressure (CVP). CARDIOVASCULAR: S1, S2 regular. ABDOMINAL EXAM: She has an audible bruit. EXTREMITIES: No clubbing, cyanosis or edema. She has diminished pulses in lower extremities. LABORATORY STUDIES: White blood count (WBC) 6.4, hemoglobin 10.0, hematocrit 30.2, platelet count 198. Chemistry panel: Sodium 138, potassium 3.4, chloride 105, bicarbonate 28, BUN 9, creatine 0.4. Her blood cultures remained negative. IMAGING: As outlined above. ASSESSMENT AND PLAN: This is a 71-year-old female with mesenteric ischemia, gastrointestinal (GI) bleed secondary to mesenteric ischemia associated with acute blood loss anemia. PROBLEMS: 1. Mesenteric ischemia. Dr. Bravo and Dr. Pickard input was greatly appreciated. I spoke with Dr. Bravo today and he informed me that we do not have the appropriate stents available at this time. He is okay with the patient being discharged home and following up with him in the next week to undergo outpatient mesenteric artery stenting. The patient is agreeable for this plan. At this time, she is medically stable and being discharged home. She has not had any further colicky abdominal pain. No further gastrointestinal (GI) bleeding and tolerating a diet well. She has ischemic vascular disease and will require further outpatient followup regarding her abdominal aortic aneurysm as well. 2. Hypertension. She has resistant hypertension, currently on metoprolol, Norvasc and lisinopril, likely related to her significant vascular disease. For the time being, while the underlying etiology has not been addressed, we are allowing for permissive hypertension. 3. Dyslipidemia. She is on simvastatin. 4. Peripheral vascular disease. As outlined above. She is to followup with Dr. Bravo of vascular surgery. 5. Tobacco abuse, cessation and counseling provided. 6. Sacral decubitus ulcer stage II was present at the time of admission. A dry foam dressing had been applied and she had been advised of frequent turning to avoid applying persistent pressure to that area. 7. Colonic polyp. Dr. Pickard has recommended that the patient should have a repeat colonoscopy in one year. DISPOSITION: The patient is being discharged home. She is independent of activities of daily living and at her functional baseline. She has been cleared by physical therapy. She is to followup with her primary care physician in seven days and followup with Dr. Bravo within seven days. Activity as tolerated. Her diet is low sodium. She is to return to the emergency room (ER) if her symptoms worsen. MEDICATION AT THE TIME OF DISCHARGE: - Norvasc 10 mg daily - metoprolol succinate 50 mg daily - lisinopril 20 mg daily - simvastatin 20 mg daily For the time being, she is to stop taking her aspirin. Greater than 30 minutes organizing safe disposition.
--- NOTE | 2016-11-24 20:56 | REP ---
IMAGES FOR MESENTERIC ANGIOGRAM: Multiple images are obtained during mesenteric angiogram. Contrast is seen in the abdominal aorta and branches. 34.1 minutes of fluoroscopy time utilized. Signed by Chavez Lopez MD 11/25/2016 09:59 A
== END 2016-11-23 12:03 | disposition home or self-care (01) | DRG 393 ==
LOC: M ED 12:12 → M ED INP 13:29 → M MSPAV 15:10 → M PCU 11-18 15:50
PROVIDERS: ATTEND Internal Medicine
PROC: 0DBE8ZX Excision of Large Intestine, Via Natural or Artificial Opening Endoscopic, Diagnostic (ICD-10-PCS; 2016-11-18)
PROC: 0DJ08ZZ Inspection of Upper Intestinal Tract, Via Natural or Artificial Opening Endoscopic (ICD-10-PCS; principal; 2016-11-18 07:30)
DX: K55.059 Acute (reversible) ischemia of intestine, part and extent unspecified (principal); L89.153 Pressure ulcer of sacral region, stage 3; K92.2 Gastrointestinal hemorrhage, unspecified; D62 Acute posthemorrhagic anemia; E78.5 Hyperlipidemia, unspecified; I73.9 Peripheral vascular disease, unspecified; F17.200 Nicotine dependence, unspecified, uncomplicated; K44.9 Diaphragmatic hernia without obstruction or gangrene; K29.70 Gastritis, unspecified, without bleeding; I71.4 Abdominal aortic aneurysm, without rupture; I10 Essential (primary) hypertension; Z79.899 Other long term (current) drug therapy; Z79.82 Long term (current) use of aspirin; I77.1 Stricture of artery

== ENCOUNTER → 2016-12-06 | Outpatient (CLI) | payer OTHER ==
[~2016-12-06] MED LIST: AMLO10TA2 PO; AMLO5TAB2 PO; ASPI1TAB PO; LISI-538 PO; METO-207 PO; SIMV20TA2 PO; TOPR25TA PO
[2016-12-06 14:23] LABS: MEAN CORPUSCULAR HEMOGLOBIN 29.7 pg (27.0-33.0); MEAN CORPUSCULAR HGB CONC 32.6 g/dl (32.0-36.5); MEAN CORPUSCULAR VOLUME 91.1 fl (80.0-96.0); RED CELL DISTRIBUTION WIDTH 14.8 % (11.5-14.5); WHITE BLOOD COUNT 5.4 K/mm3 (4.0-10.0)
[2016-12-06 15:18] LABS: ANION GAP 6 MEQ/L (8-16); BLOOD UREA NITROGEN 12 MG/DL (7-18); CALCIUM LEVEL 9.3 MG/DL (8.8-10.2); CARBON DIOXIDE LEVEL 28 MEQ/L (21-32); CHLORIDE LEVEL 105 MEQ/L (98-107); CREATININE FOR GFR 0.46 MG/DL (0.55-1.02); GLOMERULAR FILTRATION RATE > 60.0 (>39); GLUCOSE, FASTING 80 MG/DL (83-110); POTASSIUM SERUM 3.7 MEQ/L (3.5-5.1); SODIUM LEVEL 139 MEQ/L (136-145)
== END ==
LOC: M LAB 13:31
PROVIDERS: ATTEND Surgery Vascular Surgery
DX: K55.9 Vascular disorder of intestine, unspecified (principal)

== ENCOUNTER → 2016-12-10 | Outpatient (CLI) | payer OTHER ==
[~2016-12-10] MED LIST changes: +HEPARIN 1,000 UNITS/ML 10ML VIAL (FOR RADIOLOGY& DIALYSIS ONLY) As Ordered ONE; +ISOVUE-300 61% 50ML VIAL (Q9967) As Ordered ONE; -METO-207 PO; +METO1TAB7 PO; +MIDAZOLAM INJ 2 MG/2 ML VIAL (J2250) As Ordered ONE; +fentaNYL 100 MCG/2 ML INJECTION (J3010) As Ordered ONE
--- NOTE | 2016-12-16 19:03 | RO ---
DATE OF PROCEDURE: 12/10/2016 PREPROCEDURE DIAGNOSES: Severe aortoiliac atherosclerotic disease, mesenteric stenosis, renal artery stenosis, abdominal aortic aneurysm measuring 4.3 cm. Ischemic colitis. POSTPROCEDURE DIAGNOSES: Severe aortoiliac atherosclerotic disease, mesenteric stenosis, renal artery stenosis, abdominal aortic aneurysm measuring 4.3 cm. Ischemic colitis. OPERATIVE PROCEDURE: Left brachial artery exposure, aortic catheter placement with aortogram, selective left renal artery catheter placement with angiogram, left renal artery angioplasty and stenting with 7 x 19 Express SD renal stent times two. SURGEON: Addis Raymond MD TRANSCRIPTION MANAGER: ANESTHESIA: Local with sedation with 1 mg of Versed, 75 mcg of fentanyl and 4 mL of 2% lidocaine. SEDATION TME: From 0809 a.m. to 1030 a.m. with the sedation and cardiopulmonary monitoring performed by the RN in the room under my direct supervision. I was present for and directed the entire case. FLUORO TIME: 18.8 minutes. CONTRAST: 30 mL. HEPARIN: 7000 units. COMPLICATIONS: None. DRAINS: None. SPECIMENS: None. IMPLANTS: Express SD 7 x 19 renal stent times two on the left renal artery. INDICATION: The patient is a 71-year-old female who presented with two episodes of bleeding from her rectum who was evaluated and found to have ischemic colitis on colonoscopy. A CT angiogram was performed which showed severe atherosclerotic aortic occlusive disease, a 4.3 cm abdominal aortic aneurysm, occluded right renal artery with reconstitution, occluded left common and external iliac artery stents, celiac artery stenosis, severe superior mesenteric artery stenosis, left renal artery stenosis, occluded inferior mesenteric artery. The patient underwent an initial attempt at angioplasty and stenting of the superior mesenteric artery without success and now follows up for a repeat attempt through a left brachial approach. The attempts at the initial angiography were limited by recent CT angiogram and contrast limitations with the patient having renal disease and concerns for contrast induced nephropathy. Risks, benefits and alternative treatment options were discussed with the patient. Alternative treatment options included but were no limited to no intervention. Risks included, but were not limited to infection, bleeding, renal failure requiring hemodialysis, possible need for open surgical intervention, cerebrovascular accident, myocardial infarction, pulmonary embolus, deep venous thrombosis (DVT), loss of limb, loss of life and poor outcome. The patient understands, accepts these risks and consents to proceed. DESCRIPTION OF PROCEDURE: The patient was taken to the angiography suite, placed flat on the angiography room table and then prepped and draped in a standard surgical fashion. The left brachial artery was exposed through an incision overlying the artery. The artery was then cannulated with a micropuncture needle which was upsized to a micropuncture sheath over a micropuncture wire. The sheath was then upsized to a #5-[place] sheath over a Bentson wire. A catheter was placed in the aorta just above the celiac artery and an angiogram was performed in lateral and AP views. This shows complete occlusion of the aorta below the level of the renal arteries. The right renal artery was not visualized. Left renal artery showed an approximate 70% stenosis at its origin. The lateral projection showed the superior mesenteric artery to be occluded at its origin with reconstitution via collaterals off of the celiac artery. The celiac artery showed an approximate 40 to 50% stenosis at its origin. The left renal artery was then selectively cannulated and a angiogram performed confirming the stenosis after which the left renal artery was angioplasty and stented with 7 x 19 Express SD stent times two with followup angiogram showing good angiographic result. The superior mesenteric artery was attempted to be recanalized multiple times without success, after which the catheters and wires were removed. The arteriotomy in the left brachial artery was closed using #6-0 Prolene suture. The overlying skin was closed with #2-0 Vicryl and Steri-Strips. Dressings were applied. The patient tolerated the procedure well. All instrument, sponge and needle counts were correct at the end of the case. There were no complications. Dr. Raymond was present for and directed the entire case. The patient was transferred to the holding area and subsequently discharged in stable condition. RADIOLOGIC SUPERVISION INTERPRETATION: The initial aortogram showed the celiac artery to have a stenosis at its origin. The superior mesenteric artery was occluded with reconstitution distally via collaterals from the celiac artery. The left renal artery was patent, but showed stenosis at its origin. The right renal artery was not visualized. There were a large number of collaterals originating off the suprarenal aorta and coursing through the abdominal wall. The infrarenal aorta was occluded as well as both common iliac arteries. The left renal artery was selectively cannulated and angiogram performed and this was stented with two 7 x 19 Express SD stents. The followup angiogram showed resolution of the stenosis with excellent flow into the left kidney. The right kidney was not visualized. The superior mesenteric artery was attempted to be recanalized without success due to a long segment stenosis originating at its origin. The superior mesenteric artery was reconstituted distally by collaterals off of he celiac artery. The splenic and hepatic arteries were noted to be patent.
--- NOTE | 2016-12-23 13:12 | REP ---
IMAGES DURING ABDOMINAL AORTOGRAM: Multiple images obtained during abdominal aortogram. Proximal abdominal aorta is visualized. Mesenteric branches are also visualized. 18.8 minutes fluoroscopy time utilized. Signed by Chavez Lopez MD 12/23/2016 03:57 P
== END ==
LOC: M IRPRO 06:24
PROVIDERS: ATTEND Surgery Vascular Surgery
DX: I70.1 Atherosclerosis of renal artery (principal); I70.0 Atherosclerosis of aorta; I70.209 Unspecified atherosclerosis of native arteries of extremities, unspecified extremity; K55.1 Chronic vascular disorders of intestine; I71.4 Abdominal aortic aneurysm, without rupture
CPT/HCPCS: 36251; 37236; 75625; 99152; 99153; C1725; C1769; C1876; C1887; C1894; J2250; J3010; Q9967

== ENCOUNTER 2016-12-15 11:09 | Inpatient (IN) | payer OTHER ==
[~2016-12-15] VITALS: Ht 157.5 cm; Wt 47.0 kg
[~2016-12-15 11:09] MED LIST changes: -HEPARIN 1,000 UNITS/ML 10ML VIAL (FOR RADIOLOGY& DIALYSIS ONLY) As Ordered ONE; +HEPARIN SOD (PORCINE) 5000 UNITS/ML VIAL As Ordered ONE; -ISOVUE-300 61% 50ML VIAL (Q9967) As Ordered ONE; -MIDAZOLAM INJ 2 MG/2 ML VIAL (J2250) As Ordered ONE; +PROTAMINE SULF INJ 50 MG/5 ML VIAL (J2720) As Ordered ONE; +THROMBIN SOLN 20,000 UNITS KIT As Ordered ONE; -fentaNYL 100 MCG/2 ML INJECTION (J3010) As Ordered ONE
[2016-12-15] MEDS ORDERED: D5W/0.45% SODIUM CHLORIDE 1,000 ML IV SCH ×2 (11:15→22:30)
[2016-12-15] MEDS ORDERED: fentaNYL 100 MCG/2 ML INJECTION (J3010) As Ordered ONE ×2 (12:53→16:01)
[2016-12-15] MEDS ORDERED: MIDAZOLAM INJ 2 MG/2 ML VIAL (J2250) As Ordered ONE (12:53)
[2016-12-15] MEDS ORDERED: LIDOCAINE 1% SDV INJ 30 ML VIAL As Ordered ONE (13:13)
[2016-12-15] MEDS ORDERED: BUPIVACAINE HCL 0.5% 30 ML VIAL As Ordered ONE (13:14)
[2016-12-15] MEDS ORDERED: ceFAZolin 1GM INJ (J0690) As Ordered ONE (13:29)
--- NOTE | 2016-12-15 14:52 | HPE ---
DATE OF ADMISSION: 12/15/2016 REASON FOR ADMISSION: Left axillofemoral bypass graft. HISTORY OF PRESENT ILLNESS: The patient is a 71-year-old female who was initially evaluated on 11/17/2016 due to rectal bleeding. The patient, at that time, underwent colonoscopy, which showed ischemic colitis and a CT angiogram was the performed, which showed significant aortic occlusive disease above the renal, as well as near occlusion of the 4.3 cm abdominal aortic aneurysm. The patient had an occluded right renal artery with reconstitution, high grade stenosis at the left renal artery, stenosis at the celiac artery and high grade stenosis at the superior mesenteric artery. The inferior mesenteric artery was occluded. The left common and external iliac artery were occluded with reconstitution of the left common femoral artery distally. The patient underwent attempted mesenteric angiography and stenting without success due to the high grade nature of the superior mesenteric artery. The patient subsequently underwent repeat attempts at angiography and stenting to the left arm. This showed complete occlusion of the infrarenal aorta with a high grade stenosis at the left renal artery, which was angioplasty and stented. The right renal artery was no longer visualized. The aortic aneurysm was occluded. The superior mesenteric and celiac arteries were visualized on aortogram, but there was inability to enter into the superior mesenteric artery, which occluded at its origin and reconstituted distally by collaterals. The recommendation was for the patient to undergo an axillobifemoral artery bypass graft for reperfusion of her lower extremities and prevention of diversion of blood flow from the mesenteric vessels into the lower extremities. Risks, benefits, and alternative treatment options were discussed with the patient. Alternative treatments options included, but were not limited to, no intervention versus open abdominal aortic surgery with revascularization of the superior mesenteric artery and aortobifemoral bypass grafting, which was felt to be high risk for this patient in her current condition. Risks included, but were not limited to, infection, bleeding, intraabdominal catastrophe resulting in exploratory laparotomy with intervention, renal failure requiring hemodialysis, failure of the axillobifemoral bypass graft to relieve her mesenteric symptoms requiring further intraabdominal surgery with bypassing to the superior mesenteric artery, cerebrovascular accident, myocardial infarction, pulmonary embolus, deep vein thrombosis (DVT), loss of limb, loss of life and poor outcome. The patient understands and accepts these risks and consents to proceed. The patient denies any rest pain but does acknowledge chronic numbness and tingling in her lower extremities, especially with ambulation. The patient denies transient ischemic attack or amaurosis fugax. No paralysis or paresis of an extremity. No nausea, vomiting, fevers or chills. No chest pain. No shortness of breath. The patient does acknowledge having diarrhea and nausea and vomiting after undergoing her angiogram on 12/10/2016, but this resolved spontaneously and was felt to be secondary to her sedation during the procedure. PAST MEDICAL HISTORY: 1. Fractured left hip. 2. Status post common iliac artery angioplasty and stenting. 3. Breast biopsies, which showed benign disease. 4. Cervical spine surgery. 5. Hypertension. 6. Hyperlipidemia. 7. Gastrointestinal bleeding approximately 6 weeks ago. 8. Hyperlipidemia. 9. Cerebrovascular accident. 10. Kidney disease. 11. Anemia. 12. Peripheral vascular disease. 13. Dyslipidemia. PAST SURGICAL HISTORY: 1. Hysterectomy. 2. Left hip fracture repair. 3. Bilateral common iliac angioplasty and stenting. 4. Cervical spine surgery. 5. Left renal artery angioplasty and stenting. 6. Attempted superior mesenteric artery angioplasty and stenting. 7. Tubal ligation. 8. Colonoscopy. 9. Esophagogastroduodenoscopy (EGD). MEDICATIONS: - amlodipine 10 mg by mouth daily - lisinopril 20 mg by mouth daily - metoprolol 50 mg by mouth daily - simvastatin 20 mg by mouth daily ALLERGIES: No known drug allergies. FAMILY HISTORY: Father secondary to natural causes. Mother is with a history of stomach cancer. SOCIAL HISTORY: The patient is a current smoker who smokes every day and has smoked one pack per day for approximately 50 years. Occasionally uses alcohol. Denies any recreational or IV drug use. REVIEW OF SYSTEMS: CONSTITUTIONAL: Denies any fevers, chills but does acknowledge recent weight loss of a significant amount over the last 6 months. EYES: Denies blurry vision or double vision. EARS/NOSE/THROAT: No ear symptoms. No hoarseness. No issues in the mouth or throat. CARDIOVASCULAR: Denies chest pain or palpitations. RESPIRATORY: Denies chronic cough, dyspnea, shortness of breath, or wheezing. GASTROINTESTINAL: Denies any recent rectal bleeding. Has had two episodes of rectal bleeding. The patient denies any history of familial colon cancer, constipation. Did have an episode of nausea, vomiting, and diarrhea on Tuesday after her angiogram, but this has resolved spontaneously. GENITOURINARY: Denies dysuria, frequency, hematuria, and nocturia. MUSCULOSKELETAL: Denies any arthralgias, back pain, or thrombophlebitis. Does acknowledge some numbness and tingling in her legs, which is chronic. SKIN: Denies rash. NEUROLOGIC: Denies headache, stroke, transient ischemic attack or any focal deficits. PSYCHIATRIC: Denies any anxiety or depression. ENDOCRINE: Denies thyroid disease or diabetes. HEMATOLOGIC/LYMPHOPOIETIC: Denies any long-term anticoagulant use. Denies any easy bleeding or any bleeding or clotting disorders. Has normal postsurgical bleeding. ALLERGY/IMMUNOLOGY: Denies any radiocontrast media reaction and any rubber or latex allergies. PHYSICAL EXAMINATION: VITAL SIGNS: The patient is afebrile with stable vital signs. GENERAL: The patient is in no apparent distress. Is lying in bed with a bed warmer on. NEUROLOGIC: Awake, alert and oriented times three with no focal deficits. NECK: Supple with no carotid bruits. HEART: Regular rate and rhythm. LUNGS: Clear to auscultation bilaterally with no rhonchi, wheezes or crackles. ABDOMEN: Soft, nontender, nondistended with no palpable pulsatile masses. EXTREMITIES: Upper extremities show 2+ brachial, radial and ulnar pulses. The incisions in the left antecubital region from her previous angiography attempts are well healed. Lower extremities show nonpalpable femoral, popliteal, dorsalis, pedis, or posterior tibial pulses, which are all obtainable with Doppler ultrasound. Extremities show no clubbing, cyanosis, or edema. BREAST EXAM: Deferred. GYNECOLOGIC EXAM: Deferred. PSYCHOLOGIC EXAM: The patient has normal mood and affect with no obvious abnormalities noted. LYMPHOPOIETIC: No lymphadenopathy in the cervical, axillary or inguinal regions. BACK: The patient does have a decubitus ulcer in the coccyx and sacral region with clean tissue noted and no signs of infection. 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 The patient also has a 4.3 cm abdominal aortic aneurysm. Her abdominal aortic aneurysm is thrombosed and the patient has severe stenosis in the celiac, superior mesenteric arteries, which were unable to undergo angioplasty and stenting. The patient has undergone angioplasty and stenting of the left renal artery due to high grade stenosis. The right renal artery is occluded. The inferior mesenteric artery is occluded and the patient is supplying blood flow to her lower extremities via collaterals. The plan is to perform an axillobifemoral bypass to supply the lower extremities with arterial inflow and hopefully this will prevent any diversion of blood from the mesenteric collaterals into the lower extremities and will improve her mesenteric symptoms. The patient will undergo a left axillobifemoral bypass. The patient understands that this may not completely relieve her symptoms and she may require mesenteric artery bypass grafting, but an axillofemoral bypass graft is much lower risk initially than proceeding with an intraabdominal bypass graft to the superior mesenteric artery. The risks, benefits and alternative treatment options were discussed with the patient. Alternative treatment options included, but were not limited to, no intervention and/or intraabdominal aortic bypass grafting to the superior mesenteric artery, as well as an aortobifemoral bypass. This is a much higher risk option and after discussing the options with the patient, the axillobifemoral bypass will be initiated first. Risks included, but were not limited to infection, bleeding, intraabdominal organ injury necessitating exploratory laparotomy with repair, renal failure requiring hemodialysis, cerebrovascular accident, myocardial infarction, pulmonary embolus, deep vein thrombosis (DVT), loss of limb, loss of life and poor outcome. The patient understands and accepts these risks and consents to proceed.
[2016-12-15] MEDS ORDERED: PHENYLephrine HCL 500 MCG/5 ML (100MCG/ML) SYRINGE (J2370) As Ordered ONE ×2 (14:56→15:37)
[2016-12-15] MEDS ORDERED: LIDOCAINE 2% INJ 100 MG/5 ML SDV (FOR ANES.) As Ordered ONE (14:56)
[2016-12-15] MEDS ORDERED: ROCURONIUM BROMIDE 50 MG/5 ML VIAL/SYRINGE As Ordered ONE (14:56)
[2016-12-15] MEDS ORDERED: PROPOFOL 200 MG/20 ML VIAL As Ordered ONE (14:56)
[2016-12-15] MEDS ORDERED: dexameTHASONE 4 MG/ML 1ML VIAL (J1100) As Ordered ONE (14:57)
[2016-12-15] MEDS ORDERED: ONDANSETRON 4MG/2ML VIAL (J2405) As Ordered ONE (15:07)
[2016-12-15] MEDS ORDERED: NEOSTIGMINE 1MG/ML 5 ML SYRINGE (J2710) As Ordered ONE (15:07)
[2016-12-15] MEDS ORDERED: GLYCOPYRROLATE INJ 0.2 MG/ML 2 ML VIAL As Ordered ONE (15:07)
[2016-12-15] MEDS ORDERED: HEPARIN SOD (PORCINE) 5000 UNITS/ML VIAL As Ordered ONE (15:23)
[2016-12-15] MEDS ORDERED: ESMOLOL INJ 100MG/10ML VIAL As Ordered ONE (16:54)
[2016-12-15] MEDS ORDERED: BISACODYL 10 MG SUPP PR PRN (17:15)
[2016-12-15] MEDS ORDERED: MOM 30ML SUSPENSION UDC PO PRN (17:15)
[2016-12-15] MEDS ORDERED: HYDROmorphone HCL 1 MG/ML SYRINGE (J1170) As Ordered ONE (17:31)
[2016-12-15] MEDS: HYDROmorphone HCL 1 MG/ML SYRINGE (J1170) IV PRN ×3 (17:34→17:49)
[2016-12-15] MEDS ORDERED: NORCO, ANEXSIA 5/325MG TABLET (HYDROcodone/ACETAMINOPHEN) PO PRN (17:45)
[2016-12-15] MEDS ORDERED: ONDANSETRON 4MG/2ML VIAL (J2405) IV PRN (17:45)
[2016-12-15] MEDS ORDERED: METOCLOPRAMIDE INJ 10MG/2ML VIAL (J2765) IV PRN (17:45)
[2016-12-15] MEDS ORDERED: LR 1,000 ML IV SCH (17:45)
[2016-12-15] MEDS ORDERED: fentaNYL 100 MCG/2 ML INJECTION (J3010) IV PRN (17:45)
[2016-12-15] MEDS: NORCO, ANEXSIA 5/325MG TABLET (HYDROcodone/ACETAMINOPHEN) PO PRN ×2 (17:50→20:47)
[2016-12-15 18:50] VITALS: BP 153/67
[2016-12-15 19:00] VITALS: O2SAT 98
[2016-12-15 20:00] VITALS: BP 132/58; O2SAT 97
[2016-12-15] MEDS: DOCUSATE SODIUM 100 MG CAP PO SCH (20:46)
[2016-12-15] MEDS: SENOKOT S TAB PO SCH (20:46)
[2016-12-15 21:00] VITALS: BP 130/48; O2SAT 97
[2016-12-15 22:00] VITALS: BP 128/50; O2SAT 98
[2016-12-15 23:00] VITALS: BP 110/48; O2SAT 99
[2016-12-16] VITALS (17 sets, daily range): BP systolic 118–160; BP diastolic 48–90; O2SAT 96–99
[2016-12-16 06:17] LABS: MEAN CORPUSCULAR HEMOGLOBIN 29.1 pg (27.0-33.0); MEAN CORPUSCULAR HGB CONC 31.7 g/dl (32.0-36.5); RED CELL DISTRIBUTION WIDTH 14.6 % (11.5-14.5); WHITE BLOOD COUNT 6.5 K/mm3 (4.0-10.0)
[2016-12-16] MEDS ORDERED: NS 500 ML IV ONE (06:30)
[2016-12-16 06:34] LABS: ANION GAP 6 MEQ/L (8-16); BLOOD UREA NITROGEN 13 MG/DL (7-18); CALCIUM LEVEL 8.7 MG/DL (8.8-10.2); CARBON DIOXIDE LEVEL 26 MEQ/L (21-32); CHLORIDE LEVEL 108 MEQ/L (98-107); CREATININE FOR GFR 0.54 MG/DL (0.55-1.02); GLOMERULAR FILTRATION RATE > 60.0 (>39); GLUCOSE, FASTING 117 MG/DL (83-110); POTASSIUM SERUM 3.6 MEQ/L (3.5-5.1); SODIUM LEVEL 140 MEQ/L (136-145)
[2016-12-16] MEDS: NORCO, ANEXSIA 5/325MG TABLET (HYDROcodone/ACETAMINOPHEN) PO PRN ×2 (10:11→21:01)
[2016-12-16] MEDS: amLODIPine 10 MG TAB PO SCH (10:12)
[2016-12-16] MEDS: METOPROLOL SUCC (TopROL XL) 50MG **XL** TAB PO SCH (10:12)
[2016-12-16] MEDS: LISINOPRIL 20 MG TAB PO SCH (10:13)
[2016-12-16] MEDS: SENOKOT S TAB PO SCH ×2 (10:13→21:00)
[2016-12-16] MEDS: DOCUSATE SODIUM 100 MG CAP PO SCH ×2 (10:13→21:00)
[2016-12-16] MEDS: SIMVASTATIN 20 MG TAB PO SCH (10:14)
[2016-12-16] MEDS ORDERED: SLF 3 ML SYR IV PRN (20:15)
[2016-12-16] MEDS: SLF 3 ML SYR IV SCH (21:02)
[2016-12-17] VITALS (7 sets, daily range): BP systolic 116–141; BP diastolic 55–61; O2SAT 96–97
[2016-12-17] MEDS: NORCO, ANEXSIA 5/325MG TABLET (HYDROcodone/ACETAMINOPHEN) PO PRN (04:17)
[2016-12-17] MEDS: SLF 3 ML SYR IV SCH (04:18)
[2016-12-17] MEDS: DOCUSATE SODIUM 100 MG CAP PO SCH (08:30)
[2016-12-17] MEDS: SENOKOT S TAB PO SCH (08:30)
[2016-12-17] MEDS: METOPROLOL SUCC (TopROL XL) 50MG **XL** TAB PO SCH (08:31)
[2016-12-17] MEDS: amLODIPine 10 MG TAB PO SCH (08:31)
[2016-12-17] MEDS: LISINOPRIL 20 MG TAB PO SCH (08:31)
[2016-12-17] MEDS: SIMVASTATIN 20 MG TAB PO SCH (08:32)
--- NOTE | 2016-12-17 16:04 | RO ---
DATE OF PROCEDURE: 12/15/2016 PREPROCEDURE DIAGNOSES: Aortic occlusion, 4.3 cm abdominal aortic aneurysm, mesenteric ischemia, bilateral lower extremity claudication and ischemia. POSTPROCEDURE DIAGNOSES: Aortic occlusion, 4.3 cm abdominal aortic aneurysm, mesenteric ischemia, bilateral lower extremity claudication and ischemia. OPERATIVE PROCEDURE: Left axillobifemoral bypass graft with a Propaten 8 mm PTFE graft by right common femoral arterial endarterectomy, left common femoral arterial endarterectomy. SURGEON: Addis Raymond MD OPEN HEARTH HELPER: None ANESTHESIA: General endotracheal ESTIMATED BLOOD LOSS: 200 mL IV FLUIDS: 1500 mL URINE OUTPUT: 100 mL via Bowman HEPARIN: 5000 units SPECIMENS: Right and left femoral plaque. COMPLICATIONS: None DRAINS: None IMPLANTS: Axillobifemoral bypass graft from the left axillary artery to the common femoral arteries bilaterally. INDICATION: The patient is a 71-year-old female who presented with two episodes of rectal bleeding, was found to have ischemic colitis and underwent a CT angiogram which showed extensive occlusive disease in her renal arteries, superior mesenteric, celiac arteries and iliac arteries. The patient had occlusion of the bilateral lower extremity iliac and external iliac arteries on recent angiography as well as occlusion of the right renal artery and requiring stenting of the left renal artery due to high grade stenosis. The patient will now undergo an axillobifemoral bypass for alevism of blood flow to the lower extremities. Risks, benefits and alternative treatment options were discussed with the patient. Alternative treatment options included but were no limited to no intervention. Risks included, but were not limited to infection, bleeding, renal failure requiring hemodialysis, possible need for further open surgical intervention, cerebrovascular accident, myocardial infarction, pulmonary embolism, deep venous thrombosis (DVT), loss of limb, loss of life and poor outcome. The patient understands, accepts these risks and consents to proceed. DESCRIPTION OF PROCEDURE: The patient was taken to the operating room, placed flat on the operating room table and then prepped and draped in a standard surgical fashion. A time-out was completed confirming the patient and procedure after which an incision was made in a subclavicular region on the left side exposing the axillary artery and two incisions were made at the inguinal regions obliquely exposing the common femoral arteries. The common femoral arteries were sharply dissected proximally and distally and then encircled with the Vesseloops. The axillary artery was sharply dissected proximally and distally and encircled with Vesseloops. The patient was given 5000 units of heparin, after which the graft was tunneled from the left inguinal incision to the axillary artery incision and to the right femoral incision. The graft was then cut to length and fashioned with hoods. The graft was then anastomosed to the axillary artery in an end-to-side fashion using #6-0 Prolene suture. The graft was anastomosed to the common femoral arteries bilaterally in end-to-side fashion using #6-0 Prolene sutures. Prior to completing the femoral arteries bilaterally, endarterectomies were performed due to heavy burden of plaque and in the common femoral arteries. Once the femoral endarterectomies were performed on the right and left side, the graft was anastomosed. Good flow was established through the graft and into both femoral arteries. The left hand was evaluated at the completion of the anastomoses and noted to be pink and had good radial and ulnar pulses. There was good inflow into the lower extremities with Doppler ultrasound evaluation. The incisions were then closed using #2-0 Vicryl to approximate the deeper layers and israel to approximate the skin. Dressings were applied. The patient tolerated the procedure well. All instruments, sponge and needle counts were correct at the end of the case. There were no complications. Dr. Raymond was present for and directed the entire case. The patient was transferred to the recovery room, awake, alert, extubated and in stable condition.
--- NOTE | 2016-12-17 18:07 | IPN ---
DATE: 12/17/2016 SUBJECTIVE: Patient denies any pain. No incisional pain. Patient denies shortness of breath or chest pain. No nausea, vomiting, fevers, or chills. Patient states that she has significantly improved sensation in her lower extremities and her incisions have only minimal pain. OBJECTIVE: VITALS: Maximum temperature 99.7, heart rate has ranged from 68 to 72, respiratory rate ranged 16-18, blood pressure ranged 133 to 141 systolic / 59 to 61 diastolic, pulse oximetry have ranged in the 97-98 range on room air. NEUROLOGIC: Awake, alert and oriented times three with no focal deficits. NECK: Supple with no carotid bruits. HEART: Regular rate and rhythm. LUNGS: Clear to auscultation. EXTREMITIES: Upper extremity is well perfused with +2 brachial radial and ulnar pulses in the upper extremities. The infraclavicular incision on the left side shows good healing with israel in place. The lower extremities show good Doppler. Dorsalis pedis and posterior tibial pulses with significantly improved perfusion. There is some mild swelling and erythema which is consistent with reperfusion. The inguinal incisions are healing well with israel in place. ASSESSMENT AND PLAN: Patient is a 71-year-old female with aortic occlusion, abdominal aortic aneurysm, superior mesenteric artery occlusion, right renal artery occlusion, severe atherosclerotic arterial occlusive disease in the aorta, common and external iliac arteries who underwent a left axillobifemoral bypass graft and is doing well postoperatively. The patient has recuperated well and is stable and wishes to go home. Patient will be discharged to home and will followup with myself in the office in 5-7 days.
--- NOTE | 2016-12-23 06:47 | DSES ---
DATE OF ADMISSION: 12/15/2016 DATE OF DISCHARGE: 12/17/2016 ADMITTING/DISCHARGE DIAGNOSES: 1. Aortic aneurysm. 2. Aortic occlusion. 3. Aortoiliac occlusive disease. 4. Renal artery stenosis and occlusion. 5. Mesenteric artery stenosis and occlusion. 6. Atherosclerotic arterial occlusive disease in the femoral-popliteal arteries. PROCEDURE PERFORMED: Left axillobifemoral bypass graft on 12/15/2016. HOSPITAL COURSE: The patient had undergone an angiogram showing occlusion of her aorta, inferior mesenteric artery, common iliac arteries, and right renal artery. The patient had high-grade stenosis of her superior mesenteric artery which was not amenable to repair with endovascular techniques. Due to the occlusion in the aorta, the thought was that the collaterals from the bowel were supplying the blood flow to the legs and the patient will undergo an axillobifemoral bypass to reestablish direct-line flow to the legs and prevent diversion of flow from the mesenteric system due to her severe mesenteric vascular disease. The patient did well postoperatively, and had significant improved flow in her lower extremities. The patient was discharged on 12/17/2016, with instructions to followup in 5-7 days.
== END 2016-12-17 11:18 | disposition home or self-care (01) | DRG 252 ==
LOC: M OR 11:09 → M PCU 18:42
PROVIDERS: ADMIT Surgery Vascular Surgery; ATTEND Surgery Vascular Surgery
PROC: 04CK0ZZ Extirpation of Matter from Right Femoral Artery, Open Approach (ICD-10-PCS; 2016-12-15)
PROC: 04CL0ZZ Extirpation of Matter from Left Femoral Artery, Open Approach (ICD-10-PCS; 2016-12-15)
PROC: 03160J8 Bypass Left Axillary Artery to Bilateral Upper Leg Artery with Synthetic Substitute, Open Approach (ICD-10-PCS; principal; 2016-12-15 14:07)
DX: I70.0 Atherosclerosis of aorta (principal); K55.059 Acute (reversible) ischemia of intestine, part and extent unspecified; K55.1 Chronic vascular disorders of intestine; I10 Essential (primary) hypertension; E78.5 Hyperlipidemia, unspecified; D64.9 Anemia, unspecified; I73.9 Peripheral vascular disease, unspecified; Z90.710 Acquired absence of both cervix and uterus; Z98.51 Tubal ligation status; Z79.899 Other long term (current) drug therapy; F17.210 Nicotine dependence, cigarettes, uncomplicated; I71.4 Abdominal aortic aneurysm, without rupture; Z95.9 Presence of cardiac and vascular implant and graft, unspecified

== ENCOUNTER → 2017-03-23 | Outpatient (CLI) | payer OTHER ==
[~2017-03-23] MED LIST changes: -HEPARIN SOD (PORCINE) 5000 UNITS/ML VIAL As Ordered ONE; -PROTAMINE SULF INJ 50 MG/5 ML VIAL (J2720) As Ordered ONE; -THROMBIN SOLN 20,000 UNITS KIT As Ordered ONE
== END ==
LOC: M RAD 10:51
PROVIDERS: ATTEND Surgery Vascular Surgery
DX: I70.213 Atherosclerosis of native arteries of extremities with intermittent claudication, bilateral legs (principal)

== ENCOUNTER 2017-08-20 10:46 | Emergency (ER) | payer OTHER ==
[2017-08-20 11:55] LABS: BASO % 0.2 % (0.0-1.0); EOS % 0.1 % (0.0-3.0); HEMATOCRIT 43.9 % (36.0-47.0); HEMOGLOBIN 14.5 g/dl (12.0-16.0); IMMATURE GRANULOCYTE % 0.4 % (0-3.0); LYMPH # 0.5 10^3/uL (1.5-4.5); LYMPH % 5.2 % (24.0-44.0); MEAN CORPUSCULAR HEMOGLOBIN 29.5 pg (27.0-33.0); MEAN CORPUSCULAR VOLUME 89.4 fl (80.0-96.0); MONO # 0.8 10^3/uL (0.0-0.8); MONO % 7.9 % (0.0-5.0); NEUTROPHILS # 8.7 10^3/uL (1.8-7.7); NEUTROPHILS % 86.2 % (36.0-66.0); PLATELET COUNT, AUTOMATED 341 10^3/uL (150-450); RED BLOOD COUNT 4.91 10^6/uL (4.00-5.40); RED CELL DISTRIBUTION WIDTH 13.7 % (11.5-14.5); WHITE BLOOD COUNT 10.1 10^3/uL (4.0-10.0)
[2017-08-20] MEDS: IPRATROPIUM 0.5MG/ALBUTEROL 2.5MG INH SOL UD 3ML (DUONEB)(J7620) NEB ×2 (11:57→15:48)
[2017-08-20 12:09] LABS: ALBUMIN/GLOBULIN RATIO 0.59 (1.00-1.93); ALKALINE PHOSPHATASE 82 U/L (45-117); ALT/SGPT 15 U/L (12-78); ANION GAP 16 MEQ/L (8-16); AST/SGOT 19 U/L (7-37); BILIRUBIN,DIRECT 0.2 MG/DL (0.0-0.2); BILIRUBIN,TOTAL 0.9 MG/DL (0.2-1.0); BLOOD UREA NITROGEN 20 MG/DL (7-18); CALCIUM LEVEL 8.9 MG/DL (8.8-10.2); CARBON DIOXIDE LEVEL 18 MEQ/L (21-32); CHLORIDE LEVEL 104 MEQ/L (98-107); CPK CREATINE PHOSPHOKINASE 38 U/L (26-192); CREATININE FOR GFR 0.68 MG/DL (0.55-1.30); GLOMERULAR FILTRATION RATE > 60.0 (>39); GLUCOSE, FASTING 102 MG/DL (70-100); MB/CK RELATIVE INDEX 2.63 (< OR =4); POTASSIUM SERUM 3.4 MEQ/L (3.5-5.1); SODIUM LEVEL 138 MEQ/L (136-145); TOTAL PROTEIN 8.1 GM/DL (6.4-8.2); TROPONIN I < 0.02 NG/ML (< 0.10)
[2017-08-20] MEDS: NS 1,000 ML IV (12:28)
[2017-08-20 12:38] LABS: KETONE, URINE AUTO RFX 2+ mg/dL (NEGATIVE); LEUKOCYTE ESTERASE UR AUTO RFX NEGATIVE (NEGATIVE); MUCUS, URINE RFX SMALL (NEGATIVE); NITRITE, URINE AUTO RFX NEGATIVE (NEGATIVE); RBC, URINE AUTO RFX 2 /HPF (0-3); SPECIFIC GRAVITY UR AUTO RFX 1.025 (1.002-1.035); SQUAM EPITHELIAL CELL UR AURFX 5 /HPF (0-6); WBC, URINE AUTO RFX 5 /HPF (0-3)
[2017-08-20] MEDS: LISINOPRIL 20 MG TAB PO (12:58)
[2017-08-20] MEDS: amLODIPine 5 MG TAB PO (12:58)
[2017-08-20] MEDS: METOPROLOL SUCC (TopROL XL) 100MG *XL* TAB PO (12:58)
[2017-08-20] MEDS: methylPREDNISolone INJ 125 MG/2 ML VIAL (J2930) IV (15:52)
[2017-08-20] MEDS: AZITHROMYCIN 250 MG TAB PO (15:52)
== END 2017-08-20 16:37 | disposition home or self-care (01) ==
LOC: M ED 10:46
DX: J44.1 Chronic obstructive pulmonary disease with (acute) exacerbation (principal); E86.0 Dehydration; I12.9 Hypertensive chronic kidney disease with stage 1 through stage 4 chronic kidney disease, or unspecified chronic kidney disease; E78.9 Disorder of lipoprotein metabolism, unspecified; N18.3 Chronic kidney disease, stage 3 (moderate); K27.9 Peptic ulcer, site unspecified, unspecified as acute or chronic, without hemorrhage or perforation; F17.210 Nicotine dependence, cigarettes, uncomplicated
CPT/HCPCS: J2930

== ENCOUNTER → 2017-12-27 | Outpatient (CLI) | payer OTHER | LOC: M RAD 10:51 | DX: I71.4 Abdominal aortic aneurysm, without rupture (principal); I70.213 Atherosclerosis of native arteries of extremities with intermittent claudication, bilateral legs | CPT/HCPCS: 76775 ==

== ENCOUNTER → 2018-08-03 | Outpatient (CLI) | payer MEDICARE ==
[~2018-08-03] MED LIST changes: -AMLO10TA2 PO; +AMLO10TA5 PO; -AMLO5TAB2 PO; +AMLO5TAB6 PO; +AZIT500T2 PO; +METO1TAB33 PO; +PRED10TA2 PO; +PROAAER10 INH; +PROT1TAB2 PO; -TOPR25TA PO; +TOPR25TA13 PO
--- NOTE | 2018-08-03 10:23 | REP ---
BILATERAL LOWER EXTREMITY ARTERIAL DOPPLER ULTRASOUND: 08/03/2018. Clinical history: Intermittent claudication bilaterally with known left axillary bifemoral graft. Comparison: 12/27/2017. Findings: There is a left axillobifemoral graft, it shows patency and no significant stenosis. At the axillary anastomosis, velocity is 255 cm/s biphasic. Just beyond this, anastomosis of the velocity 419 cm/s biphasic. The deep BPG shows velocity 140.6 cm/s triphasic and cross femoral velocity 73.4 cm/s triphasic. Right lower extremity: Peak systolic velocity: Phasicity. LOAN OPERATIONS MANAGER anastomosis: 76.9 cm/s triphasic LOAN OPERATIONS MANAGER: 119.3 biphasic Profunda: 111 cm/s biphasic SFA proximal: 113 cm/s biphasic SFA mid: 48.1 cm/s biphasic SFA distal: 31.3 cm/s biphasic Popliteal: 22 cm/s monophasic CAYETANO proximal: 17.7 cm/s monophasic Tibioperoneal trunk: 23.7 cm/s monophasic FACE AND FILL PACKER proximal: 24 cm/s monophasic FACE AND FILL PACKER distal 16.3 cm/s monophasic CAYETANO distal: 16.3 cm/s monophasic. Left lower extremity: Peak systolic velocity: Phasicity: LOAN OPERATIONS MANAGER anastomosis: 106 cm/s biphasic LOAN OPERATIONS MANAGER: 132 cm/s biphasic Profunda: 82 cm/s biphasic SFA proximal: 106 cm/s biphasic SFA mid: 95 cm/s biphasic SFA distal: 97.1 cm/s biphasic Popliteal: 41.9 cm/s biphasic CAYETANO proximal: 75.4 cm/s biphasic Tibioperoneal trunk: 69 cm/s biphasic FACE AND FILL PACKER proximal: 34 cm/s biphasic FACE AND FILL PACKER distal: 37 cm/s biphasic CAYETANO distal: 45 cm/s biphasic. There is severe atherosclerotic disease bilaterally. There is severe involvement of the SFA proximal to midportion with stenosis and monophasic waveform below the right knee and low velocity waveforms throughout the lower leg. There is no significant stenosis of the left leg with biphasic waveforms seen throughout. There were heavily calcified vessels bilaterally. ABIs are not performed due to the severe overestimation. Electronically Signed by Regis Reddy MD 08/03/2018 07:28 P
== END ==
LOC: M RAD 07:40
PROVIDERS: ATTEND Surgery Vascular Surgery
DX: I70.213 Atherosclerosis of native arteries of extremities with intermittent claudication, bilateral legs (principal)

== ENCOUNTER → 2019-04-20 | Outpatient (CLI) | payer MEDICARE ==
[~2019-04-20] MED LIST changes: -ASPI1TAB PO; +ASPI81TA26 PO; -AZIT500T2 PO; +AZIT500T5 PO; +TOPR25TA PO; -TOPR25TA13 PO
--- NOTE | 2019-04-20 11:52 | REP ---
Bilateral lower extremity arterial Doppler ultrasound: History: Left axilla fem-fem bypass graft. Atherosclerosis of the [place] arteries. Bilateral lower extremity claudication. Nicotine dependence. Comparison study August 03, 2018. The left axilla fem-fem bypass graft remains patent. Velocity chart left axilla fem-fem bypass graft: Add axillary artery 169 cm/S Proximal anastomoses 223 Mid torso 06/1993 Left CF A anastomosis 98 Right CF A anastomoses 74 Ankle brachial indices could not be obtained due to noncompressible vessels. A significant right mid SFA stenosis is seen with reversal revascularized flow in the distal SFA. Monophasic waveforms are noted throughout the right lower extremity today. A large collateral is seen on the right. Velocity chart right lower extremity arteries: CF A 176/126 cm/S Profunda 135 Proximal SFA 50 Mid SFA /04/18 Distal SFA reversed 52 Popliteal 26 Proximal AT A 28 Tibioperoneal trunk 31 Proximal HEAD OF HOUSEKEEPING 24 Distal HEAD OF HOUSEKEEPING 18 Distal AT A 28 Velocity chart left lower extremity arteries: Left CF A 104 cm/S Profunda 101 Proximal SFA 143 Mid SFA 86 Distal SFA 97 Popliteal 61 Proximal AT A 64 Tibioperoneal trunk 75 Proximal HEAD OF HOUSEKEEPING 100 Distal HEAD OF HOUSEKEEPING 31 Distal AT A 54 Electronically Signed by Josiah Alcala MD 04/20/2019 11:43 A
== END ==
LOC: M RAD 08:36
PROVIDERS: ATTEND Physician Assistant
DX: I70.213 Atherosclerosis of native arteries of extremities with intermittent claudication, bilateral legs (principal); F17.218 Nicotine dependence, cigarettes, with other nicotine-induced disorders

== ENCOUNTER → 2020-02-21 | Outpatient (CLI) | payer MEDICARE ==
[~2020-02-21] MED LIST changes: -AMLO10TA5 PO; +AMLO1TAB24 PO; +AMLO1TAB25 PO; -AMLO5TAB6 PO; -SIMV20TA2 PO; +SIMV20TA22 PO
--- NOTE | 2020-03-13 10:32 | REP ---
HISTORY: Atherosclerosis lower extremities. COMPARISON: 04/20/2019. TECHNIQUE: Real-time ultrasound evaluation and duplex Doppler interrogation of the bilateral lower extremity arterial systems is performed. FINDINGS: Patient has a left [id number] bypass graft, which is patent. Velocity in the left axillary artery is 73 cm/s, at the anastomosis with the bypass graft 243 cm/s, at the mid thorax 182 cm/s, at the right common femoral anastomosis 88 cm/s, at the left common femoral anastomosis 214 cm/s. Once again, there is significant stenosis of the mid right superficial femoral artery. Collateral vessel from the more proximal aspect of the superficial artery reconstitutes the more distal superficial femoral artery. Monophasic waveforms are seen throughout the right lower extremity. Biphasic waveforms are seen throughout the left lower extremity, except for monophasic waveform in the profunda. RIGHT PSV LEFT PSV Femoral artery 183 cm/s 185 cm/s Profunda 123 cm/s 75 cm/s Proximal SFA 100 cm/s 147 cm/s Mid SFA 176 cm/s 126 cm/s Distal SFA 73 cm/s 113 cm/s Popliteal 42 cm/s 58 cm/s Proximal CAYETANO 39 cm/s 61 cm/s Tibioperoneal trunk 51 cm/s 77 cm/s Proximal TRAINING PROFESSIONAL 18 cm/s 46 cm/s Distal TRAINING PROFESSIONAL 24 cm/s 50 cm/s Distal CAYETANO 25 cm/s 33 cm/s MTDD
== END ==
LOC: M RAD 07:28
PROVIDERS: ATTEND Physician Assistant
DX: I70.213 Atherosclerosis of native arteries of extremities with intermittent claudication, bilateral legs (principal); Z95.1 Presence of aortocoronary bypass graft

== ENCOUNTER → 2020-09-18 | Outpatient (CLI) | payer MEDICARE ==
[~2020-09-18] MED LIST changes: -LISI-538 PO; +LISI20TA33 PO
--- NOTE | 2020-09-19 03:38 | REP ---
INDICATION: ATH BRENT ART OF EXT W INTERM SHER, TRESA LEGS COMPARISON: 02/21/2020, 04/20/2019 TECHNIQUE: Real time larose scale and color Doppler evaluation of the bilateral lower extremity arterial vasculature using linear high frequency transducer. Doppler interrogation of the patient's known bypass grafts performed. FINDINGS: There is a left axillary bypass graft (ABPG) which extends to the left common femoral artery (MODELING AGENT) appears patent and demonstrates monophasic arterial wave patterns. Left axillary anastomosis: 438-362 cm/sec ABPG (mid chest): 187 cm/sec ABPG (mid abdomen): 180 cm/sec ABPG (iliac crest): 194 cm/sec. ABPG (MODELING AGENT anastomosis): 193 cm/sec There is a subsequent fem-fem bypass graft (FFBPG) which appears patent and demonstrates bi/monophasic arterial wave patterns. FFBPG (left MODELING AGENT anastomosis): 193 cm/sec FFBPG (left hemipelvis): 158 cm/sec FFBPG (right hemipelvis): 132 cm/sec FFBPG (right MODELING AGENT anastomosis): 129 cm/sec Severe calcified atheromatous plaquing is identified throughout the bilateral lower extremities. Right lower extremity demonstrates monophasic wave patterns and there appears to be 2:1 stenosis at the right common femoral artery beyond the bypass anastomosis along with significant stenosis of the mid to distal right superficial femoral artery. Left lower extremity demonstrates biphasic wave patterns without focal stenosis identified. AB indices could not be obtained due to extensive calcified plaquing and subsequent noncompressible vessels. Peak systolic velocities (cm/sec) Common femoral artery: Right 277 ; Left 232 Profunda femoris: Right 286; Left 171 SFA (proximal): Right 116; Left 201 SFA (mid): Right 45; Left 141 SFA (distal): Right 388/28; Left 117 Popliteal artery: Right 32; Left 70 CAYETANO (prox.): Right 39; Left 71 Tibioperoneal trunk: Right 27; Left 73 SHORT HAUL DRIVER (prox.): Right 29; Left 63 SHORT HAUL DRIVER (distal): Right 21; Left 50 CAYETANO (distal): Right 36; Left 55 IMPRESSION: 1. Axillary and femoral-femoral bypass grafts appear patent. 2. Extensive calcified atheromatous changes to the bilateral lower extremities as described above including areas of stenosis involving the right lower extremity. <Electronically signed by Mendel Clemons > 09/19/20 [id number]
== END ==
LOC: M RAD 12:59
PROVIDERS: ATTEND Physician Assistant
DX: I70.213 Atherosclerosis of native arteries of extremities with intermittent claudication, bilateral legs (principal); Z95.828 Presence of other vascular implants and grafts

== ENCOUNTER 2021-05-25 11:15 | Inpatient (IN) | payer MEDICARE, OTHER ==
[~2021-05-25] VITALS: Ht 157.5 cm; Wt 37.5 kg
[2021-05-25] VITALS (39 sets, daily range): BP systolic 116–228; BP diastolic 51–155
[2021-05-25 14:35] LABS: BASO % 0.1 % (0.0-1.0); EOS % 0.1 % (0.0-3.0); HEMATOCRIT 29.4 % (36.0-47.0); LYMPH # 0.4 10^3/uL (1.5-5.0); LYMPH % 6.3 % (24.0-44.0); MEAN CORPUSCULAR VOLUME 88.3 fl (80.0-96.0); MONO # 0.5 10^3/uL (0.0-0.8); MONO % 7.6 % (2.0-8.0); NEUTROPHILS # 5.7 10^3/uL (1.5-8.5); NEUTROPHILS % 85.3 % (36.0-66.0); PLATELET COUNT, AUTOMATED 226 10^3/uL (150-450); RED BLOOD COUNT 3.33 10^6/uL (4.00-5.40); WHITE BLOOD COUNT 6.7 10^3/uL (4.0-10.0)
[2021-05-25 14:46] LABS: INR 1.12; PROTHROMBIN TIME 14.8 SECONDS (12.7-14.5)
[2021-05-25 15:07] LABS: CK-MB VALUE MASS 4.4 NG/ML (<3.6); MB/CK RELATIVE INDEX 4.84 (< OR =4)
[2021-05-25 15:20] LABS: BILIRUBIN, URINE MANUAL NEGATIVE (NEGATIVE); GLUCOSE, URINE (UA) MANUAL NEGATIVE (NEGATIVE); KETONE, URINE MANUAL NEGATIVE (NEGATIVE); UROBILINOGEN, URINE MANUAL NORMAL (NORMAL)
[2021-05-25 15:27] LABS: BACTERIA, URINE LARGE AMOUNT; RBC, URINE TNTC /hpf (0-3); SQUAMOUS EPITHELIAL CELL URINE NONE SEEN /hpf (SMALL AMT); TRANSITIONAL EPI CELLS, URINE MOD AMOUNT /hpf
[2021-05-25 15:28] LABS: GRANULAR CAST, URINE 0-1 /lpf; HYALINE CAST, URINE NONE SEEN /lpf (0-1)
[2021-05-25 15:29] LABS: ALBUMIN 2.5 GM/DL (3.2-5.2); BILIRUBIN,TOTAL 0.4 MG/DL (0.2-1.0); CALCIUM LEVEL 8.5 MG/DL (8.8-10.2); CREATININE FOR GFR 12.8 MG/DL (0.55-1.30); POTASSIUM SERUM 6.2 MEQ/L (3.5-5.1); TOTAL PROTEIN 5.9 GM/DL (6.4-8.2)
[2021-05-25] MEDS ORDERED: LISI20TA35 PO (16:21)
[2021-05-25] MEDS ORDERED: METO1TAB7 PO (16:21)
[2021-05-25] MEDS ORDERED: ASPI81TA26 PO (16:23)
[2021-05-25 16:24] LABS: ABG BASE EXCESS -6.8 (-2.0-2.0); ABG O2 SATURATION 96.4 % (95.0-99.0); ABG PARTIAL PRESSURE CO2 28.5 mmHg (35.0-45.0); ABG PARTIAL PRESSURE O2 93.9 mmHg (75.0-100.0); ABG STANDARD HCO3 18.9 MEQ/L (22.0-26.0); ABG TOTAL CO2 17.9 MEQ/L (23.0-31.0); ABG pH (ARTERIAL) 7.393 UNITS (7.350-7.450)
[2021-05-25] MEDS ORDERED: HOME MED LIST COMPLETE! XX SCH (16:25)
[2021-05-25 16:34] LABS: MAGNESIUM LEVEL 2.7 MG/DL (1.8-2.4); PHOSPHORUS LEVEL 8.2 MG/DL (2.5-4.9)
[2021-05-25] MEDS ORDERED: niCARdipine IV 40 MG in IV 1 EA IV SCH (16:40)
[2021-05-25] MEDS: SODIUM BICARBONATE 75 MEQ in NS 0.45% 1,000 ML IV SCH (16:48)
[2021-05-25] MEDS: niCARdipine IV 40 MG in IV 1 EA IV SCH ×2 (16:54→23:41)
[2021-05-25] MEDS ORDERED: PIPERACILLIN/TAZOBACTAM SOD 4.5 GM in D5W MINI-BAG PLUS 50 ML IV ONE (17:00)
[2021-05-25] MEDS ORDERED: LIDOCAINE 1% MDV 20ML VIAL As Ordered ONE (17:57)
[2021-05-25] MEDS ORDERED: SODIUM CHLORIDE 0.9% 1000ML IV PRN (18:00)
[2021-05-25] MEDS ORDERED: LIDOCAINE 1% MDV 20ML VIAL SC ONE (18:45)
[2021-05-25 19:28] LABS: HEPATITIS B CORE ANTIBODY IGM NEGATIVE (NEGATIVE); HEPATITIS B SURFACE ANTIBODY NEGATIVE (POSITIVE); HEPATITIS B SURFACE ANTIGEN NEGATIVE (NEGATIVE); HEPATITIS C VIRUS ABY INDEX 0.1 INDEX (<0.8)
[2021-05-25 21:42] LABS: CK-MB VALUE MASS 4.6 NG/ML (<3.6); MB/CK RELATIVE INDEX 3.9 (< OR =4)
[2021-05-25 23:51] LABS: CLOSTRIDIUM DIFFICILE PCR NEGATIVE (NEGATIVE)
[2021-05-26] VITALS (48 sets, daily range): BP systolic 102–181; BP diastolic 52–106
[2021-05-26] MEDS ORDERED: UNRESOLVED CLARIFICATION ENTRY XX SCH (00:01)
[2021-05-26 00:49] LABS: CALCIUM LEVEL 8.1 MG/DL (8.8-10.2); CREATININE FOR GFR 6.71 MG/DL (0.55-1.30); GLOMERULAR FILTRATION RATE 6.4 (>39); POTASSIUM SERUM 3.6 MEQ/L (3.5-5.1)
[2021-05-26] MEDS: PIPERACILLIN/TAZOBACTAM SOD 2.25 GM in D5W MINI-BAG PLUS 50 ML IV SCH ×3 (01:01→17:05)
[2021-05-26] MEDS: niCARdipine IV 40 MG in IV 1 EA IV SCH (04:53)
[2021-05-26] MEDS: SODIUM BICARBONATE 75 MEQ in NS 0.45% 1,000 ML IV SCH (04:53)
[2021-05-26 05:56] LABS: BASO % 0.1 % (0.0-1.0); EOS % 0.3 % (0.0-3.0); HEMATOCRIT 30.3 % (36.0-47.0); HEMOGLOBIN 10.3 g/dl (12.0-15.5); LYMPH # 0.2 10^3/uL (1.5-5.0); LYMPH % 2.2 % (24.0-44.0); MEAN CORPUSCULAR HEMOGLOBIN 29.7 pg (27.0-33.0); MEAN CORPUSCULAR VOLUME 87.3 fl (80.0-96.0); MONO # 0.4 10^3/uL (0.0-0.8); MONO % 5.4 % (2.0-8.0); NEUTROPHILS # 7.1 10^3/uL (1.5-8.5); NEUTROPHILS % 91.5 % (36.0-66.0); PLATELET COUNT, AUTOMATED 196 10^3/uL (150-450); RED BLOOD COUNT 3.47 10^6/uL (4.00-5.40); WHITE BLOOD COUNT 7.8 10^3/uL (4.0-10.0)
[2021-05-26 06:32] LABS: BILIRUBIN,TOTAL 0.7 MG/DL (0.2-1.0); CALCIUM LEVEL 7.9 MG/DL (8.8-10.2); CREATININE FOR GFR 7.24 MG/DL (0.55-1.30); GLOMERULAR FILTRATION RATE 5.9 (>39); PHOSPHORUS LEVEL 6.5 MG/DL (2.5-4.9); POTASSIUM SERUM 4.3 MEQ/L (3.5-5.1); TOTAL PROTEIN 5.7 GM/DL (6.4-8.2)
[2021-05-26] MEDS: METOPROLOL TART 25 MG TABLET PO SCH ×2 (10:59→20:17)
[2021-05-26] MEDS: LACTOBACILLUS ACIDOPHILUS CAP (BACID) PO SCH ×2 (10:59→18:00)
[2021-05-26] MEDS: NS 0.45% 1,000 ML IV SCH ×2 (11:54→23:50)
[2021-05-26] MEDS ORDERED: MIDAZOLAM INJ 2MG/2ML VIAL (J2250 PER 1MG) As Ordered ONE (14:11)
[2021-05-26] MEDS ORDERED: fentaNYL 100 MCG/2 ML INJECTION (J3010) As Ordered ONE (14:11)
[2021-05-26] MEDS ORDERED: ISOVUE-300 61% 50ML VIAL As Ordered ONE (14:11)
[2021-05-26] MEDS ORDERED: LIDOCAINE 1% MDV 20ML VIAL As Ordered ONE ×2 (14:12→14:13)
[2021-05-26] MEDS ORDERED: ISOVUE-370 76% 100ML VIAL As Ordered ONE (16:14)
[2021-05-26] MEDS ORDERED: SODIUM BICARBONATE 8.4% INJ 50 ML SYRINGE As Ordered ONE (18:30)
[2021-05-26] MEDS ORDERED: SODIUM CHLORIDE 0.9% 1000ML IV PRN (22:40)
[2021-05-27] VITALS (16 sets, daily range): BP systolic 131–200; BP diastolic 60–76
[2021-05-27] MEDS: PIPERACILLIN/TAZOBACTAM SOD 2.25 GM in D5W MINI-BAG PLUS 50 ML IV SCH (00:01)
[2021-05-27 05:54] LABS: HEMATOCRIT 29.5 % (36.0-47.0); HEMOGLOBIN 9.7 g/dl (12.0-15.5); MEAN CORPUSCULAR HEMOGLOBIN 29.5 pg (27.0-33.0); MEAN CORPUSCULAR HGB CONC 32.9 g/dl (32.0-36.5); MEAN CORPUSCULAR VOLUME 89.7 fl (80.0-96.0); PLATELET COUNT, AUTOMATED 211 10^3/uL (150-450); RED BLOOD COUNT 3.29 10^6/uL (4.00-5.40); WHITE BLOOD COUNT 10.3 10^3/uL (4.0-10.0)
[2021-05-27] MEDS: NS 0.45% 1,000 ML IV SCH (06:01)
[2021-05-27] MEDS ORDERED: GLUCOSE 4GM CHEW TABLET PO PRN (06:15)
[2021-05-27] MEDS ORDERED: DEXTROSE 50% 50 ML SYRINGE IV PRN (06:15)
[2021-05-27] MEDS ORDERED: GLUCAGON INJ 1MG VIAL SC PRN (06:15)
[2021-05-27 06:28] LABS: BILIRUBIN,TOTAL 0.4 MG/DL (0.2-1.0); CALCIUM LEVEL 7.8 MG/DL (8.8-10.2); CREATININE FOR GFR 8.34 MG/DL (0.55-1.30); POTASSIUM SERUM 4.4 MEQ/L (3.5-5.1)
[2021-05-27] MEDS ORDERED: MEROPENEM INJ 1 GM in IV 1 EA IV SCH (08:00)
[2021-05-27] MEDS: D5W/0.45% SODIUM CHLORIDE 1,000 ML IV SCH ×2 (08:25→19:05)
[2021-05-27] MEDS: LACTOBACILLUS ACIDOPHILUS CAP (BACID) PO SCH ×2 (08:25→17:34)
[2021-05-27] MEDS: METOPROLOL TART 25 MG TABLET PO SCH (09:00)
[2021-05-27] MEDS ORDERED: MEROPENEM INJ 500 MG in IV 1 EA IV SCH (16:00)
[2021-05-27] MEDS ORDERED: LOPERAMIDE 2 MG CAPLET PO PRN (17:05)
[2021-05-27] MEDS ORDERED: cefTRIAXone SOD 1 GM in D5W MINI-BAG PLUS 50 ML IV SCH (18:00)
[2021-05-27] MEDS ORDERED: hydrALAZINE 20MG/ML 1ML VIAL (J0360 PER 20MG) IV ONE (20:45)
[2021-05-27] MEDS: ACETAMINOPHEN TAB 650MG DOSE (2X325MG) PO PRN (23:31)
[2021-05-28] VITALS (7 sets, daily range): BP systolic 160–180; BP diastolic 60–84
[2021-05-28] MEDS: D5W/0.45% SODIUM CHLORIDE 1,000 ML IV SCH (04:23)
[2021-05-28 05:21] LABS: MEAN CORPUSCULAR HGB CONC 33.3 g/dl (32.0-36.5); PLATELET COUNT, AUTOMATED 186 10^3/uL (150-450); WHITE BLOOD COUNT 10.3 10^3/uL (4.0-10.0)
[2021-05-28 06:04] LABS: ALBUMIN 1.8 GM/DL (3.2-5.2); BILIRUBIN,TOTAL 0.2 MG/DL (0.2-1.0); CALCIUM LEVEL 7.2 MG/DL (8.8-10.2); CREATININE FOR GFR 5.01 MG/DL (0.55-1.30); PERCENT SATURATION 15.7 % (13.2-45.0); POTASSIUM SERUM 3.4 MEQ/L (3.5-5.1); TOTAL PROTEIN 4.7 GM/DL (6.4-8.2)
[2021-05-28] MEDS ORDERED: POTASSIUM CHLORIDE 10MEQ SR TABLET PO ONE (09:00)
[2021-05-28] MEDS: LACTOBACILLUS ACIDOPHILUS CAP (BACID) PO SCH ×2 (09:04→17:29)
[2021-05-28] MEDS: METOPROLOL SUCC (TopROL XL) 50MG **XL** TAB PO SCH (09:07)
[2021-05-28] MEDS: amLODIPine 5 MG TAB PO SCH (09:07)
[2021-05-28] MEDS ORDERED: LevoFLOXacin 250 MG TABLET PO SCH (15:00)
[2021-05-28] MEDS ORDERED: PILL CUTTER 1 EACH XX PRN (15:35)
[2021-05-28] MEDS: **hydrALAZINE HCL** 25 MG TAB PO SCH ×2 (16:52→21:14)
[2021-05-28] MEDS: LevoFLOXacin 250 MG TABLET PO SCH (17:49)
[2021-05-28] MEDS: HEPARIN SOD (PORCINE) 5000UNITS/ML 1ML VIAL/SYRINGE SQ SCH (21:13)
[2021-05-29] VITALS: BP 166/99
[2021-05-29 03:58] LABS: HEMATOCRIT 25.6 % (36.0-47.0); HEMOGLOBIN 8.4 g/dl (12.0-15.5); MEAN CORPUSCULAR HEMOGLOBIN 29.7 pg (27.0-33.0); MEAN CORPUSCULAR HGB CONC 32.8 g/dl (32.0-36.5); MEAN CORPUSCULAR VOLUME 90.5 fl (80.0-96.0); PLATELET COUNT, AUTOMATED 176 10^3/uL (150-450); RED BLOOD COUNT 2.83 10^6/uL (4.00-5.40); WHITE BLOOD COUNT 10.3 10^3/uL (4.0-10.0)
[2021-05-29 04:00] VITALS: BP 168/94
[2021-05-29 04:08] LABS: ALBUMIN 1.6 GM/DL (3.2-5.2); BILIRUBIN,TOTAL 0.3 MG/DL (0.2-1.0); CALCIUM LEVEL 7.1 MG/DL (8.8-10.2); CREATININE FOR GFR 6.49 MG/DL (0.55-1.30); GLOMERULAR FILTRATION RATE 6.6 (>39); POTASSIUM SERUM 3.9 MEQ/L (3.5-5.1)
[2021-05-29] MEDS: **hydrALAZINE HCL** 25 MG TAB PO SCH ×3 (05:18→22:06)
[2021-05-29 08:00] VITALS: BP 179/75
[2021-05-29] MEDS: HEPARIN SOD (PORCINE) 5000UNITS/ML 1ML VIAL/SYRINGE SQ SCH ×2 (09:15→22:05)
[2021-05-29] MEDS: LACTOBACILLUS ACIDOPHILUS CAP (BACID) PO SCH ×2 (09:15→19:15)
[2021-05-29] MEDS: amLODIPine 5 MG TAB PO SCH (09:15)
[2021-05-29] MEDS: METOPROLOL SUCC (TopROL XL) 50MG **XL** TAB PO SCH (09:16)
[2021-05-29 11:52] VITALS: BP 194/81
[2021-05-29 17:05] VITALS: BP 153/71
[2021-05-29 20:00] VITALS: BP 186/58
[2021-05-29] MEDS: SIMVASTATIN 20 MG TAB PO SCH (22:06)
[2021-05-30 04:00] VITALS: BP 170/60
[2021-05-30] MEDS: **hydrALAZINE HCL** 25 MG TAB PO SCH ×3 (05:45→21:10)
[2021-05-30 06:32] LABS: HEMATOCRIT 26.5 % (36.0-47.0); HEMOGLOBIN 8.5 g/dl (12.0-15.5); MEAN CORPUSCULAR HEMOGLOBIN 29.4 pg (27.0-33.0); MEAN CORPUSCULAR HGB CONC 32.1 g/dl (32.0-36.5); MEAN CORPUSCULAR VOLUME 91.7 fl (80.0-96.0); PLATELET COUNT, AUTOMATED 193 10^3/uL (150-450); RED BLOOD COUNT 2.89 10^6/uL (4.00-5.40); WHITE BLOOD COUNT 9.2 10^3/uL (4.0-10.0)
[2021-05-30 06:56] LABS: CHOLESTEROL RISK RATIO 2.488 (<5)
[2021-05-30 07:08] LABS: BILIRUBIN,TOTAL 0.3 MG/DL (0.2-1.0); CALCIUM LEVEL 7.3 MG/DL (8.8-10.2); CREATININE FOR GFR 8.02 MG/DL (0.55-1.30); GLOMERULAR FILTRATION RATE 5.2 (>39); TOTAL PROTEIN 4.6 GM/DL (6.4-8.2)
[2021-05-30] MEDS ORDERED: ISOVUE-370 76% 100ML VIAL As Ordered ONE (07:39)
[2021-05-30] MEDS ORDERED: SODIUM CHLORIDE 0.9% 1000ML IV PRN (07:55)
[2021-05-30 08:00] VITALS: BP 169/68
[2021-05-30] MEDS ORDERED: CLOPIDOGREL 75 MG TAB PO SCH (09:00)
[2021-05-30] MEDS ORDERED: ASPIRIN 81MG ENTERIC TABLET PO SCH (09:00)
[2021-05-30] MEDS: HEPARIN SOD (PORCINE) 5000UNITS/ML 1ML VIAL/SYRINGE SQ SCH ×2 (09:48→20:30)
[2021-05-30] MEDS: amLODIPine 5 MG TAB PO SCH (09:48)
[2021-05-30] MEDS: METOPROLOL SUCC (TopROL XL) 50MG **XL** TAB PO SCH (09:48)
[2021-05-30] MEDS: LACTOBACILLUS ACIDOPHILUS CAP (BACID) PO SCH ×2 (09:48→18:11)
[2021-05-30] MEDS: IRON SUCROSE 100MG 5ML VIAL (J1756 PER 1MG) IV SCH (13:38)
[2021-05-30 15:30] VITALS: BP 154/51
[2021-05-30] MEDS: LevoFLOXacin 250 MG TABLET PO SCH (18:11)
[2021-05-30] MEDS: SIMVASTATIN 20 MG TAB PO SCH (20:29)
[2021-05-30 22:00] VITALS: BP 156/68
[2021-05-31 06:00] VITALS: BP 166/54
[2021-05-31] MEDS: **hydrALAZINE HCL** 25 MG TAB PO SCH ×3 (06:10→21:28)
[2021-05-31 08:15] LABS: HEMATOCRIT 27.5 % (36.0-47.0); HEMOGLOBIN 9.2 g/dl (12.0-15.5); MEAN CORPUSCULAR HEMOGLOBIN 30.1 pg (27.0-33.0); MEAN CORPUSCULAR HGB CONC 33.5 g/dl (32.0-36.5); MEAN CORPUSCULAR VOLUME 89.9 fl (80.0-96.0); PLATELET COUNT, AUTOMATED 226 10^3/uL (150-450); RED BLOOD COUNT 3.06 10^6/uL (4.00-5.40); WHITE BLOOD COUNT 7.2 10^3/uL (4.0-10.0)
[2021-05-31 08:41] LABS: ALBUMIN 2.1 GM/DL (3.2-5.2); ALT/SGPT 26 U/L (12-78); BILIRUBIN,TOTAL 0.4 MG/DL (0.2-1.0); BLOOD UREA NITROGEN 30 MG/DL (7-18); CALCIUM LEVEL 7.8 MG/DL (8.8-10.2); CARBON DIOXIDE LEVEL 25 MEQ/L (21-32); CHLORIDE LEVEL 105 MEQ/L (98-107); CREATININE FOR GFR 5.14 MG/DL (0.55-1.30); GLOMERULAR FILTRATION RATE 8.7 (>39); GLUCOSE, FASTING 106 MG/DL (70-100); POTASSIUM SERUM 3.9 MEQ/L (3.5-5.1); SODIUM LEVEL 140 MEQ/L (136-145)
[2021-05-31] MEDS: LACTOBACILLUS ACIDOPHILUS CAP (BACID) PO SCH ×2 (09:01→18:11)
[2021-05-31] MEDS: amLODIPine 5 MG TAB PO SCH (09:02)
[2021-05-31] MEDS: METOPROLOL SUCC (TopROL XL) 50MG **XL** TAB PO SCH (09:02)
[2021-05-31 14:00] VITALS: BP 157/63
[2021-05-31] MEDS: SIMVASTATIN 20 MG TAB PO SCH (21:29)
[2021-05-31] MEDS ORDERED: SODIUM CHLORIDE 0.9% 1000ML IV PRN (21:45)
[2021-05-31 22:00] VITALS: BP 159/62
[2021-06-01] MEDS: **hydrALAZINE HCL** 25 MG TAB PO SCH ×3 (05:15→20:48)
[2021-06-01 05:19] VITALS: BP 165/63
[2021-06-01 05:55] LABS: HEMATOCRIT 26.3 % (36.0-47.0); HEMOGLOBIN 8.6 g/dl (12.0-15.5); MEAN CORPUSCULAR HEMOGLOBIN 29.9 pg (27.0-33.0); MEAN CORPUSCULAR HGB CONC 32.7 g/dl (32.0-36.5); MEAN CORPUSCULAR VOLUME 91.3 fl (80.0-96.0); PLATELET COUNT, AUTOMATED 240 10^3/uL (150-450); RED BLOOD COUNT 2.88 10^6/uL (4.00-5.40); WHITE BLOOD COUNT 8.2 10^3/uL (4.0-10.0)
[2021-06-01 06:21] LABS: BILIRUBIN,TOTAL 0.3 MG/DL (0.2-1.0); CALCIUM LEVEL 7.6 MG/DL (8.8-10.2); CREATININE FOR GFR 6.81 MG/DL (0.55-1.30); GLOMERULAR FILTRATION RATE 6.3 (>39); POTASSIUM SERUM 4.2 MEQ/L (3.5-5.1); TOTAL PROTEIN 4.9 GM/DL (6.4-8.2)
[2021-06-01] MEDS: LACTOBACILLUS ACIDOPHILUS CAP (BACID) PO SCH ×2 (08:00→17:59)
[2021-06-01] MEDS: METOPROLOL SUCC (TopROL XL) 50MG **XL** TAB PO SCH (09:00)
[2021-06-01] MEDS: amLODIPine 5 MG TAB PO SCH (09:00)
[2021-06-01] MEDS: IRON SUCROSE 100MG 5ML VIAL (J1756 PER 1MG) IV SCH (09:36)
[2021-06-01 12:00] VITALS: BP 106/60
[2021-06-01 14:00] VITALS: BP 169/62
[2021-06-01 14:23] LABS: ALBUMIN % 48.4 % (55.8-66.1); ALPHA-1-GLOBULIN % 10.6 % (2.9-4.9); ALPHA-2-GLOBULINS % 12.5 % (7.1-11.8); BETA-1-GLOBULINS % 9.9 % (4.7-7.2); BETA-2-GLOBULINS % 5.4 % (3.2-6.5)
[2021-06-01 14:24] LABS: ALBUMIN 2.42 GM/DL (3.29-5.55); ALPHA-1-GLOBULINS 0.53 GM/DL (0.17-0.41); ALPHA-2-GLOBULINS 0.63 GM/DL (0.42-0.99); BETA-2-GLOBULINS 0.27 GM/DL (0.19-0.55); GAMMA GLOBULIN % 13.2 % (11.1-18.8); GAMMA GLOBULINS 0.66 GM/DL (0.65-1.58)
[2021-06-01 14:55] LABS: VITAMIN B12 LEVEL 654 PG/ML (247-911)
[2021-06-01] MEDS: LevoFLOXacin 250 MG TABLET PO SCH (17:59)
[2021-06-01 19:57] VITALS: BP 170/70
[2021-06-01] MEDS: SIMVASTATIN 20 MG TAB PO SCH (20:47)
[2021-06-02 05:03] VITALS: BP 180/69
[2021-06-02] MEDS: **hydrALAZINE HCL** 25 MG TAB PO SCH (05:11)
[2021-06-02 06:09] LABS: HEMATOCRIT 25.3 % (36.0-47.0); HEMOGLOBIN 8.1 g/dl (12.0-15.5); MEAN CORPUSCULAR HEMOGLOBIN 29.9 pg (27.0-33.0); MEAN CORPUSCULAR VOLUME 93.4 fl (80.0-96.0); PLATELET COUNT, AUTOMATED 243 10^3/uL (150-450); RED BLOOD COUNT 2.71 10^6/uL (4.00-5.40); WHITE BLOOD COUNT 6.8 10^3/uL (4.0-10.0)
[2021-06-02 06:37] LABS: BILIRUBIN,TOTAL 0.3 MG/DL (0.2-1.0); CALCIUM LEVEL 8.3 MG/DL (8.8-10.2); CREATININE FOR GFR 3.76 MG/DL (0.55-1.30); GLOMERULAR FILTRATION RATE 12.5 (>39); POTASSIUM SERUM 4.2 MEQ/L (3.5-5.1); TOTAL PROTEIN 5.4 GM/DL (6.4-8.2)
[2021-06-02] MEDS: LACTOBACILLUS ACIDOPHILUS CAP (BACID) PO SCH ×2 (08:29→17:27)
[2021-06-02] MEDS: METOPROLOL SUCC (TopROL XL) 50MG **XL** TAB PO SCH (08:29)
[2021-06-02] MEDS: amLODIPine 5 MG TAB PO SCH (08:30)
[2021-06-02 13:07] LABS: IgG P18 AB Absent (.); IgG P23 AB Absent (.); IgG P28 AB Absent (.); IgG P30 AB Absent (.); IgG P39 AB Absent (.); IgG P41 AB Absent (.); IgG P45 AB Absent (.); IgG P66 AB Absent (.); IgG P93 AB Absent (.); IgM P23 AB Absent (.); IgM P39 AB Absent (.); IgM P41 AB Absent (.); LYME IgG WB INTERPRETATION Negative (.); LYME IgM WB INTERPRETATION Negative (.)
[2021-06-02] MEDS: **hydrALAZINE** 50 MG TAB PO SCH ×2 (15:06→21:53)
[2021-06-02 21:52] VITALS: BP 162/54
[2021-06-02] MEDS: SIMVASTATIN 20 MG TAB PO SCH (21:53)
[2021-06-03] VITALS (7 sets, daily range): BP systolic 116–182; BP diastolic 49–78
[2021-06-03] MEDS: **hydrALAZINE** 50 MG TAB PO SCH ×3 (05:50→21:35)
[2021-06-03 06:10] LABS: HEMATOCRIT 22.6 % (36.0-47.0); HEMOGLOBIN 7.3 g/dl (12.0-15.5); MEAN CORPUSCULAR HEMOGLOBIN 30.2 pg (27.0-33.0); MEAN CORPUSCULAR HGB CONC 32.3 g/dl (32.0-36.5); MEAN CORPUSCULAR VOLUME 93.4 fl (80.0-96.0); PLATELET COUNT, AUTOMATED 226 10^3/uL (150-450); RED BLOOD COUNT 2.42 10^6/uL (4.00-5.40); WHITE BLOOD COUNT 7.2 10^3/uL (4.0-10.0)
[2021-06-03 06:40] LABS: ALBUMIN 2.1 GM/DL (3.2-5.2); BILIRUBIN,TOTAL 0.3 MG/DL (0.2-1.0); CALCIUM LEVEL 7.7 MG/DL (8.8-10.2); CREATININE FOR GFR 5.44 MG/DL (0.55-1.30); GLOMERULAR FILTRATION RATE 8.1 (>39); POTASSIUM SERUM 4.6 MEQ/L (3.5-5.1); TOTAL PROTEIN 4.9 GM/DL (6.4-8.2)
[2021-06-03] MEDS ORDERED: SODIUM CHLORIDE 0.9% 1000ML IV PRN (07:30)
[2021-06-03] MEDS: LACTOBACILLUS ACIDOPHILUS CAP (BACID) PO SCH ×2 (08:00→17:53)
[2021-06-03] MEDS: METOPROLOL SUCC (TopROL XL) 50MG **XL** TAB PO SCH (08:41)
[2021-06-03] MEDS: amLODIPine 5 MG TAB PO SCH (08:41)
[2021-06-03] MEDS: IRON SUCROSE 100MG 5ML VIAL (J1756 PER 1MG) IV SCH (09:17)
[2021-06-03] MEDS: SIMVASTATIN 20 MG TAB PO SCH (21:36)
[2021-06-04 06:00] VITALS: BP 155/71
[2021-06-04] MEDS: **hydrALAZINE** 50 MG TAB PO SCH ×3 (06:22→20:19)
[2021-06-04 06:36] LABS: HEMATOCRIT 27.3 % (36.0-47.0); HEMOGLOBIN 8.9 g/dl (12.0-15.5); MEAN CORPUSCULAR HEMOGLOBIN 30.3 pg (27.0-33.0); MEAN CORPUSCULAR HGB CONC 32.6 g/dl (32.0-36.5); MEAN CORPUSCULAR VOLUME 92.9 fl (80.0-96.0); PLATELET COUNT, AUTOMATED 145 10^3/uL (150-450); RED BLOOD COUNT 2.94 10^6/uL (4.00-5.40); WHITE BLOOD COUNT 7.4 10^3/uL (4.0-10.0)
[2021-06-04 06:51] LABS: ALBUMIN 2.2 GM/DL (3.2-5.2); BILIRUBIN,TOTAL 0.4 MG/DL (0.2-1.0); CALCIUM LEVEL 7.6 MG/DL (8.8-10.2); CREATININE FOR GFR 3.73 MG/DL (0.55-1.30); GLOMERULAR FILTRATION RATE 12.6 (>39); POTASSIUM SERUM 4.1 MEQ/L (3.5-5.1); TOTAL PROTEIN 5.3 GM/DL (6.4-8.2)
[2021-06-04] MEDS: amLODIPine 5 MG TAB PO SCH (09:00)
[2021-06-04] MEDS: METOPROLOL SUCC (TopROL XL) 50MG **XL** TAB PO SCH (09:28)
[2021-06-04] MEDS: LACTOBACILLUS ACIDOPHILUS CAP (BACID) PO SCH ×2 (09:29→17:29)
[2021-06-04 14:00] VITALS: BP 173/56
[2021-06-04] MEDS: SIMVASTATIN 20 MG TAB PO SCH (20:20)
[2021-06-04 22:00] VITALS: BP 169/51
[2021-06-05] MEDS: **hydrALAZINE** 50 MG TAB PO SCH ×3 (05:52→21:02)
[2021-06-05 06:00] VITALS: BP 172/53
[2021-06-05] MEDS ORDERED: SODIUM CHLORIDE 0.9% 1000ML IV PRN (07:15)
[2021-06-05] MEDS: amLODIPine 5 MG TAB PO SCH (07:58)
[2021-06-05] MEDS: LACTOBACILLUS ACIDOPHILUS CAP (BACID) PO SCH ×2 (07:58→17:09)
[2021-06-05] MEDS: METOPROLOL SUCC (TopROL XL) 50MG **XL** TAB PO SCH (07:59)
[2021-06-05] MEDS: IRON SUCROSE 100MG 5ML VIAL (J1756 PER 1MG) IV SCH (09:45)
[2021-06-05 14:00] VITALS: BP 182/59
[2021-06-05 20:00] VITALS: BP 146/96
[2021-06-05] MEDS: SIMVASTATIN 20 MG TAB PO SCH (21:02)
[2021-06-06] MEDS: **hydrALAZINE** 50 MG TAB PO SCH ×3 (05:39→21:10)
[2021-06-06 06:00] VITALS: BP 180/57
[2021-06-06 07:41] LABS: BASO % 0.4 % (0.0-1.0); EOS # 0.1 10^3/uL (0.0-0.5); EOS % 1.7 % (0.0-3.0); HEMATOCRIT 25.4 % (36.0-47.0); HEMOGLOBIN 8.2 g/dl (12.0-15.5); LYMPH # 0.8 10^3/uL (1.5-5.0); LYMPH % 11.7 % (24.0-44.0); MEAN CORPUSCULAR HEMOGLOBIN 29.7 pg (27.0-33.0); MEAN CORPUSCULAR HGB CONC 32.3 g/dl (32.0-36.5); MONO # 0.4 10^3/uL (0.0-0.8); NEUTROPHILS # 5.6 10^3/uL (1.5-8.5); NEUTROPHILS % 79.5 % (36.0-66.0); RED BLOOD COUNT 2.76 10^6/uL (4.00-5.40)
[2021-06-06 07:59] LABS: CALCIUM LEVEL 7.8 MG/DL (8.8-10.2); CREATININE FOR GFR 3.48 MG/DL (0.55-1.30); GLOMERULAR FILTRATION RATE 13.6 (>39); MAGNESIUM LEVEL 2.2 MG/DL (1.8-2.4); POTASSIUM SERUM 4.1 MEQ/L (3.5-5.1)
[2021-06-06 08:14] LABS: PLATELET COUNT, AUTOMATED 37 10^3/uL (150-450)
[2021-06-06] MEDS: METOPROLOL SUCC (TopROL XL) 50MG **XL** TAB PO SCH (08:27)
[2021-06-06] MEDS: amLODIPine 5 MG TAB PO SCH (08:27)
[2021-06-06] MEDS: LACTOBACILLUS ACIDOPHILUS CAP (BACID) PO SCH ×2 (08:27→17:23)
[2021-06-06 14:00] VITALS: BP 151/49
[2021-06-06] MEDS: SIMVASTATIN 20 MG TAB PO SCH (21:10)
[2021-06-06 22:00] VITALS: BP 159/62
[2021-06-07] MEDS: **hydrALAZINE** 50 MG TAB PO SCH (05:38)
[2021-06-07 06:00] VITALS: BP 192/62
[2021-06-07] MEDS: amLODIPine 5 MG TAB PO SCH (08:32)
[2021-06-07] MEDS: LACTOBACILLUS ACIDOPHILUS CAP (BACID) PO SCH ×2 (08:32→17:28)
[2021-06-07] MEDS: METOPROLOL SUCC (TopROL XL) 50MG **XL** TAB PO SCH ×2 (08:34→09:26)
[2021-06-07] MEDS: cloNIDine HCL 0.1 MG/24 HR PATCH TOP SCH ×2 (08:34→09:26)
[2021-06-07] MEDS: **hydrALAZINE HCL** 25 MG TAB PO SCH ×2 (13:29→20:51)
[2021-06-07 14:00] VITALS: BP 177/63
[2021-06-07] MEDS: SIMVASTATIN 20 MG TAB PO SCH (20:51)
[2021-06-07 22:00] VITALS: BP 182/72
[2021-06-08] MEDS: **hydrALAZINE HCL** 25 MG TAB PO SCH ×3 (06:02→21:02)
[2021-06-08] MEDS ORDERED: SODIUM CHLORIDE 0.9% 1000ML IV PRN (07:00)
[2021-06-08] MEDS: LACTOBACILLUS ACIDOPHILUS CAP (BACID) PO SCH ×2 (08:00→17:23)
[2021-06-08] MEDS: amLODIPine 5 MG TAB PO SCH (08:09)
[2021-06-08] MEDS: METOPROLOL SUCC (TopROL XL) 50MG **XL** TAB PO SCH (08:10)
[2021-06-08 09:17] LABS: HEMATOCRIT 27.2 % (36.0-47.0); HEMOGLOBIN 8.8 g/dl (12.0-15.5); MEAN CORPUSCULAR HEMOGLOBIN 30.3 pg (27.0-33.0); MEAN CORPUSCULAR HGB CONC 32.4 g/dl (32.0-36.5); MEAN CORPUSCULAR VOLUME 93.8 fl (80.0-96.0); WHITE BLOOD COUNT 6.6 10^3/uL (4.0-10.0)
[2021-06-08 10:03] LABS: PLATELET COUNT, AUTOMATED 66 10^3/uL (150-450)
[2021-06-08] MEDS: DARBEPOETIN 100 MCG/0.5 ML *DIALYSIS* SYRINGE (J0882) IV SCH (10:14)
[2021-06-08] MEDS: IRON SUCROSE 100MG 5ML VIAL (J1756 PER 1MG) IV SCH (10:44)
[2021-06-08 11:01] LABS: CALCIUM LEVEL 7.4 MG/DL (8.8-10.2); CREATININE FOR GFR 7.12 MG/DL (0.55-1.30); MAGNESIUM LEVEL 2.2 MG/DL (1.8-2.4)
[2021-06-08] MEDS: ASPIRIN 81MG ENTERIC TABLET PO SCH (13:01)
[2021-06-08] MEDS: CLOPIDOGREL 75 MG TAB PO SCH (13:01)
[2021-06-08] MEDS: SIMVASTATIN 20 MG TAB PO SCH (21:02)
[2021-06-09 06:01] VITALS: BP 168/62
[2021-06-09] MEDS: **hydrALAZINE HCL** 25 MG TAB PO SCH ×3 (06:51→21:08)
[2021-06-09] MEDS: ASPIRIN 81MG ENTERIC TABLET PO SCH (08:13)
[2021-06-09] MEDS: LACTOBACILLUS ACIDOPHILUS CAP (BACID) PO SCH ×2 (08:13→17:37)
[2021-06-09] MEDS: METOPROLOL SUCC (TopROL XL) 50MG **XL** TAB PO SCH (08:14)
[2021-06-09] MEDS: amLODIPine 5 MG TAB PO SCH (08:14)
[2021-06-09] MEDS: CLOPIDOGREL 75 MG TAB PO SCH (08:14)
[2021-06-09] MEDS: SIMVASTATIN 20 MG TAB PO SCH (21:07)
[2021-06-10 06:00] VITALS: BP 158/54
[2021-06-10] MEDS: CLOPIDOGREL 75 MG TAB PO SCH (06:48)
[2021-06-10] MEDS: **hydrALAZINE HCL** 25 MG TAB PO SCH ×3 (06:48→22:00)
[2021-06-10] MEDS: LACTOBACILLUS ACIDOPHILUS CAP (BACID) PO SCH ×2 (06:48→17:23)
[2021-06-10] MEDS: ASPIRIN 81MG ENTERIC TABLET PO SCH (06:49)
[2021-06-10] MEDS: amLODIPine 5 MG TAB PO SCH (06:49)
[2021-06-10] MEDS: METOPROLOL SUCC (TopROL XL) 50MG **XL** TAB PO SCH (06:51)
[2021-06-10] MEDS ORDERED: SODIUM CHLORIDE 0.9% 1000ML IV PRN (08:00)
[2021-06-10 08:03] LABS: HEMATOCRIT 25.2 % (36.0-47.0); HEMOGLOBIN 8.2 g/dl (12.0-15.5); MEAN CORPUSCULAR HEMOGLOBIN 30.3 pg (27.0-33.0); MEAN CORPUSCULAR HGB CONC 32.5 g/dl (32.0-36.5); RED BLOOD COUNT 2.71 10^6/uL (4.00-5.40)
[2021-06-10 08:10] LABS: PLATELET COUNT, AUTOMATED 95 10^3/uL (150-450)
[2021-06-10 08:27] LABS: CALCIUM LEVEL 7.3 MG/DL (8.8-10.2); CREATININE FOR GFR 6.05 MG/DL (0.55-1.30); GLOMERULAR FILTRATION RATE 7.2 (>39); MAGNESIUM LEVEL 2.1 MG/DL (1.8-2.4); POTASSIUM SERUM 4.7 MEQ/L (3.5-5.1)
[2021-06-10 13:07] LABS: COPPER PLASMA 124 ug/dL (80-158); Lyme Disease IgG/IgM Antibodie <0.91 ISR (0.00-0.90); Lyme Disease IgM Ab Quantitati <0.80 index (0.00-0.79); VITAMIN B1 LEVEL WHOLE BLOOD 93.4 nmol/L (66.5-200.0)
[2021-06-10] MEDS: SIMVASTATIN 20 MG TAB PO SCH (22:13)
[2021-06-11 06:00] VITALS: BP 145/57
[2021-06-11] MEDS: **hydrALAZINE HCL** 25 MG TAB PO SCH ×3 (06:42→21:06)
[2021-06-11] MEDS: CLOPIDOGREL 75 MG TAB PO SCH (08:33)
[2021-06-11] MEDS: ASPIRIN 81MG ENTERIC TABLET PO SCH (08:33)
[2021-06-11] MEDS: LACTOBACILLUS ACIDOPHILUS CAP (BACID) PO SCH ×2 (08:34→17:49)
[2021-06-11] MEDS: amLODIPine 5 MG TAB PO SCH (08:36)
[2021-06-11] MEDS: METOPROLOL SUCC (TopROL XL) 50MG **XL** TAB PO SCH (08:37)
[2021-06-11] MEDS: SIMVASTATIN 20 MG TAB PO SCH (21:05)
[2021-06-12] MEDS: **hydrALAZINE HCL** 25 MG TAB PO SCH ×3 (05:21→20:48)
[2021-06-12 06:00] VITALS: BP 167/63
[2021-06-12] MEDS ORDERED: SODIUM CHLORIDE 0.9% 1000ML IV PRN (07:40)
[2021-06-12] MEDS: amLODIPine 5 MG TAB PO SCH (09:00)
[2021-06-12] MEDS: METOPROLOL SUCC (TopROL XL) 50MG **XL** TAB PO SCH (09:00)
[2021-06-12] MEDS: CLOPIDOGREL 75 MG TAB PO SCH (09:07)
[2021-06-12] MEDS: ASPIRIN 81MG ENTERIC TABLET PO SCH (09:07)
[2021-06-12] MEDS: LACTOBACILLUS ACIDOPHILUS CAP (BACID) PO SCH ×2 (09:10→17:17)
[2021-06-12 09:26] LABS: HEMATOCRIT 26.3 % (36.0-47.0); HEMOGLOBIN 8.7 g/dl (12.0-15.5); MEAN CORPUSCULAR HEMOGLOBIN 32.2 pg (27.0-33.0); MEAN CORPUSCULAR HGB CONC 33.1 g/dl (32.0-36.5); MEAN CORPUSCULAR VOLUME 97.4 fl (80.0-96.0); PLATELET COUNT, AUTOMATED 123 10^3/uL (150-450); WHITE BLOOD COUNT 4.5 10^3/uL (4.0-10.0)
[2021-06-12 09:50] LABS: CALCIUM LEVEL 7.6 MG/DL (8.8-10.2); CREATININE FOR GFR 5.76 MG/DL (0.55-1.30); GLOMERULAR FILTRATION RATE 7.6 (>39); MAGNESIUM LEVEL 2.2 MG/DL (1.8-2.4); POTASSIUM SERUM 5.1 MEQ/L (3.5-5.1)
[2021-06-12] MEDS: SIMVASTATIN 20 MG TAB PO SCH (20:46)
[2021-06-12] MEDS: ACETAMINOPHEN TAB 650MG DOSE (2X325MG) PO PRN (20:46)
[2021-06-13] MEDS: **hydrALAZINE HCL** 25 MG TAB PO SCH ×3 (05:13→20:40)
[2021-06-13 06:00] VITALS: BP 172/50
[2021-06-13] MEDS: ASPIRIN 81MG ENTERIC TABLET PO SCH (09:22)
[2021-06-13] MEDS: amLODIPine 5 MG TAB PO SCH (09:22)
[2021-06-13] MEDS: LACTOBACILLUS ACIDOPHILUS CAP (BACID) PO SCH ×2 (09:22→17:18)
[2021-06-13] MEDS: CLOPIDOGREL 75 MG TAB PO SCH (09:22)
[2021-06-13] MEDS: METOPROLOL SUCC (TopROL XL) 50MG **XL** TAB PO SCH (09:23)
[2021-06-13] MEDS ORDERED: ONDANSETRON 4 MG ORAL DISINTEGRATING TAB PO PRN (12:45)
[2021-06-13] MEDS: SIMVASTATIN 20 MG TAB PO SCH (20:39)
[2021-06-14] MEDS: **hydrALAZINE HCL** 25 MG TAB PO SCH ×3 (05:28→21:22)
[2021-06-14 06:00] VITALS: BP 157/50
[2021-06-14] MEDS ORDERED: SODIUM CHLORIDE 0.9% 1000ML IV PRN (06:50)
[2021-06-14 08:54] LABS: HEMATOCRIT 24.6 % (36.0-47.0); HEMOGLOBIN 8.2 g/dl (12.0-15.5); MEAN CORPUSCULAR HEMOGLOBIN 32.4 pg (27.0-33.0); MEAN CORPUSCULAR HGB CONC 33.3 g/dl (32.0-36.5); MEAN CORPUSCULAR VOLUME 97.2 fl (80.0-96.0); RED BLOOD COUNT 2.53 10^6/uL (4.00-5.40); WHITE BLOOD COUNT 4.3 10^3/uL (4.0-10.0)
[2021-06-14 08:57] LABS: PLATELET COUNT, AUTOMATED 91 10^3/uL (150-450)
[2021-06-14] MEDS: METOPROLOL SUCC (TopROL XL) 50MG **XL** TAB PO SCH (09:00)
[2021-06-14 09:12] LABS: CALCIUM LEVEL 7.3 MG/DL (8.8-10.2); CREATININE FOR GFR 5.11 MG/DL (0.55-1.30); GLOMERULAR FILTRATION RATE 8.8 (>39); MAGNESIUM LEVEL 2.3 MG/DL (1.8-2.4)
[2021-06-14] MEDS: LACTOBACILLUS ACIDOPHILUS CAP (BACID) PO SCH ×2 (09:47→17:58)
[2021-06-14] MEDS: ASPIRIN 81MG ENTERIC TABLET PO SCH (09:47)
[2021-06-14] MEDS: CLOPIDOGREL 75 MG TAB PO SCH (09:47)
[2021-06-14] MEDS: cloNIDine HCL 0.1 MG/24 HR PATCH TOP SCH (09:51)
[2021-06-14] MEDS: amLODIPine 5 MG TAB PO SCH (10:22)
[2021-06-14] MEDS: SIMVASTATIN 20 MG TAB PO SCH (21:22)
[2021-06-14 22:00] VITALS: BP 168/58
[2021-06-15] MEDS: LACTOBACILLUS ACIDOPHILUS CAP (BACID) PO SCH ×2 (05:22→18:50)
[2021-06-15] MEDS: **hydrALAZINE HCL** 25 MG TAB PO SCH ×3 (05:22→21:28)
[2021-06-15] MEDS: CLOPIDOGREL 75 MG TAB PO SCH (05:22)
[2021-06-15] MEDS: ASPIRIN 81MG ENTERIC TABLET PO SCH (05:22)
[2021-06-15] MEDS: amLODIPine 5 MG TAB PO SCH (05:23)
[2021-06-15] MEDS: METOPROLOL SUCC (TopROL XL) 50MG **XL** TAB PO SCH (05:23)
[2021-06-15 06:00] VITALS: BP 148/51
[2021-06-15] MEDS: DARBEPOETIN 100 MCG/0.5 ML *DIALYSIS* SYRINGE (J0882) IV SCH (09:57)
[2021-06-15] MEDS: SIMVASTATIN 20 MG TAB PO SCH (21:28)
[2021-06-16 05:26] VITALS: BP 156/68
[2021-06-16] MEDS: **hydrALAZINE HCL** 25 MG TAB PO SCH ×3 (05:32→21:18)
[2021-06-16 07:15] LABS: HEMATOCRIT 26.7 % (36.0-47.0); HEMOGLOBIN 9.1 g/dl (12.0-15.5); MEAN CORPUSCULAR HEMOGLOBIN 33.6 pg (27.0-33.0); MEAN CORPUSCULAR HGB CONC 34.1 g/dl (32.0-36.5); MEAN CORPUSCULAR VOLUME 98.5 fl (80.0-96.0); PLATELET COUNT, AUTOMATED 101 10^3/uL (150-450); RED BLOOD COUNT 2.71 10^6/uL (4.00-5.40); WHITE BLOOD COUNT 4.7 10^3/uL (4.0-10.0)
[2021-06-16 07:36] LABS: CALCIUM LEVEL 7.7 MG/DL (8.8-10.2); CREATININE FOR GFR 3.74 MG/DL (0.55-1.30); GLOMERULAR FILTRATION RATE 12.6 (>39); MAGNESIUM LEVEL 2.2 MG/DL (1.8-2.4); POTASSIUM SERUM 4.4 MEQ/L (3.5-5.1)
[2021-06-16] MEDS: CLOPIDOGREL 75 MG TAB PO SCH (08:05)
[2021-06-16] MEDS: LACTOBACILLUS ACIDOPHILUS CAP (BACID) PO SCH ×2 (08:05→17:01)
[2021-06-16] MEDS: amLODIPine 5 MG TAB PO SCH (08:06)
[2021-06-16] MEDS: ASPIRIN 81MG ENTERIC TABLET PO SCH (08:06)
[2021-06-16] MEDS: METOPROLOL SUCC (TopROL XL) 50MG **XL** TAB PO SCH (08:07)
[2021-06-16] MEDS: SIMVASTATIN 20 MG TAB PO SCH (21:17)
[2021-06-17] MEDS: **hydrALAZINE HCL** 25 MG TAB PO SCH ×3 (05:26→21:11)
[2021-06-17 06:00] VITALS: BP 168/60
[2021-06-17] MEDS ORDERED: SODIUM CHLORIDE 0.9% 1000ML IV PRN (08:10)
[2021-06-17] MEDS: ASPIRIN 81MG ENTERIC TABLET PO SCH (08:24)
[2021-06-17] MEDS: METOPROLOL SUCC (TopROL XL) 50MG **XL** TAB PO SCH (08:24)
[2021-06-17] MEDS: LACTOBACILLUS ACIDOPHILUS CAP (BACID) PO SCH ×2 (08:24→17:40)
[2021-06-17] MEDS: amLODIPine 5 MG TAB PO SCH (08:25)
[2021-06-17] MEDS: CLOPIDOGREL 75 MG TAB PO SCH (08:25)
[2021-06-17] MEDS: SIMVASTATIN 20 MG TAB PO SCH (21:11)
[2021-06-18] MEDS: **hydrALAZINE HCL** 25 MG TAB PO SCH ×3 (05:29→21:13)
[2021-06-18 06:00] VITALS: BP 178/60
[2021-06-18] MEDS: CLOPIDOGREL 75 MG TAB PO SCH (08:20)
[2021-06-18] MEDS: LACTOBACILLUS ACIDOPHILUS CAP (BACID) PO SCH ×2 (08:20→18:08)
[2021-06-18] MEDS: amLODIPine 5 MG TAB PO SCH (08:20)
[2021-06-18] MEDS: ASPIRIN 81MG ENTERIC TABLET PO SCH (08:20)
[2021-06-18] MEDS: METOPROLOL SUCC (TopROL XL) 50MG **XL** TAB PO SCH (08:21)
[2021-06-18] MEDS: SIMVASTATIN 20 MG TAB PO SCH (21:11)
[2021-06-19] MEDS: **hydrALAZINE HCL** 25 MG TAB PO SCH ×3 (05:39→20:10)
[2021-06-19 06:00] VITALS: BP 184/76
[2021-06-19] MEDS ORDERED: SODIUM CHLORIDE 0.9% 1000ML IV PRN (07:50)
[2021-06-19] MEDS: ASPIRIN 81MG ENTERIC TABLET PO SCH (08:03)
[2021-06-19] MEDS: CLOPIDOGREL 75 MG TAB PO SCH (08:04)
[2021-06-19] MEDS: LACTOBACILLUS ACIDOPHILUS CAP (BACID) PO SCH ×2 (08:04→18:22)
[2021-06-19] MEDS: METOPROLOL SUCC (TopROL XL) 50MG **XL** TAB PO SCH (08:05)
[2021-06-19] MEDS: amLODIPine 5 MG TAB PO SCH (08:05)
[2021-06-19 13:17] LABS: HEMATOCRIT 28.3 % (36.0-47.0); HEMOGLOBIN 9.3 g/dl (12.0-15.5); MEAN CORPUSCULAR HEMOGLOBIN 32.5 pg (27.0-33.0); MEAN CORPUSCULAR HGB CONC 32.9 g/dl (32.0-36.5); PLATELET COUNT, AUTOMATED 107 10^3/uL (150-450); RED BLOOD COUNT 2.86 10^6/uL (4.00-5.40); WHITE BLOOD COUNT 6.6 10^3/uL (4.0-10.0)
[2021-06-19 13:46] LABS: CREATININE FOR GFR 5.18 MG/DL (0.55-1.30); GLOMERULAR FILTRATION RATE 8.6 (>39)
[2021-06-19 13:47] LABS: ALBUMIN 2.6 GM/DL (3.2-5.2); CALCIUM LEVEL 7.9 MG/DL (8.8-10.2)
[2021-06-19 18:23] VITALS: BP 172/62
[2021-06-19 19:41] VITALS: BP 176/63
[2021-06-19] MEDS: SIMVASTATIN 20 MG TAB PO SCH (20:09)
[2021-06-20 05:05] VITALS: BP 176/61
[2021-06-20] MEDS: **hydrALAZINE HCL** 25 MG TAB PO SCH ×3 (05:14→20:02)
[2021-06-20] MEDS: ASPIRIN 81MG ENTERIC TABLET PO SCH (08:23)
[2021-06-20] MEDS: LACTOBACILLUS ACIDOPHILUS CAP (BACID) PO SCH ×2 (08:23→17:23)
[2021-06-20] MEDS: amLODIPine 5 MG TAB PO SCH (08:23)
[2021-06-20] MEDS: METOPROLOL SUCC (TopROL XL) 50MG **XL** TAB PO SCH (08:23)
[2021-06-20] MEDS: CLOPIDOGREL 75 MG TAB PO SCH (08:23)
[2021-06-20 14:05] VITALS: BP 179/64
[2021-06-20] MEDS: SIMVASTATIN 20 MG TAB PO SCH (20:02)
[2021-06-21] MEDS: **hydrALAZINE HCL** 25 MG TAB PO SCH ×3 (05:31→20:42)
[2021-06-21 06:00] VITALS: BP 181/67
[2021-06-21] MEDS: CLOPIDOGREL 75 MG TAB PO SCH (08:20)
[2021-06-21] MEDS: LACTOBACILLUS ACIDOPHILUS CAP (BACID) PO SCH ×2 (08:20→17:26)
[2021-06-21] MEDS: ASPIRIN 81MG ENTERIC TABLET PO SCH (08:20)
[2021-06-21] MEDS: amLODIPine 5 MG TAB PO SCH (08:21)
[2021-06-21] MEDS: METOPROLOL SUCC (TopROL XL) 50MG **XL** TAB PO SCH (08:22)
[2021-06-21] MEDS: cloNIDine HCL 0.1 MG/24 HR PATCH TOP SCH (08:22)
[2021-06-21] MEDS: SIMVASTATIN 20 MG TAB PO SCH (20:41)
[2021-06-21 21:00] VITALS: BP 176/60
[2021-06-22] MEDS: **hydrALAZINE HCL** 25 MG TAB PO SCH ×3 (04:54→20:45)
[2021-06-22 05:56] VITALS: BP 196/67
[2021-06-22] MEDS ORDERED: SODIUM CHLORIDE 0.9% 1000ML IV PRN (07:00)
[2021-06-22] MEDS: LACTOBACILLUS ACIDOPHILUS CAP (BACID) PO SCH ×2 (08:00→17:20)
[2021-06-22] MEDS: ASPIRIN 81MG ENTERIC TABLET PO SCH (08:54)
[2021-06-22] MEDS: amLODIPine 5 MG TAB PO SCH (09:00)
[2021-06-22 09:24] LABS: HEMATOCRIT 27.6 % (36.0-47.0); HEMOGLOBIN 9.3 g/dl (12.0-15.5); MEAN CORPUSCULAR HEMOGLOBIN 33.7 pg (27.0-33.0); MEAN CORPUSCULAR HGB CONC 33.7 g/dl (32.0-36.5); PLATELET COUNT, AUTOMATED 109 10^3/uL (150-450); RED BLOOD COUNT 2.76 10^6/uL (4.00-5.40); WHITE BLOOD COUNT 2.6 10^3/uL (4.0-10.0)
[2021-06-22 09:35] LABS: ALBUMIN 2.5 GM/DL (3.2-5.2); CALCIUM LEVEL 7.9 MG/DL (8.8-10.2); CREATININE FOR GFR 4.14 MG/DL (0.55-1.30); GLOMERULAR FILTRATION RATE 11.2 (>39); PHOSPHORUS LEVEL 3.5 MG/DL (2.5-4.9); POTASSIUM SERUM 3.6 MEQ/L (3.5-5.1)
[2021-06-22] MEDS: DARBEPOETIN 100 MCG/0.5 ML *DIALYSIS* SYRINGE (J0882) IV SCH (10:07)
[2021-06-22] MEDS: METOPROLOL SUCC (TopROL XL) 50MG **XL** TAB PO SCH (12:51)
[2021-06-22] MEDS: CLOPIDOGREL 75 MG TAB PO SCH (12:52)
[2021-06-22] MEDS: SIMVASTATIN 20 MG TAB PO SCH (20:43)
[2021-06-22 21:00] VITALS: BP 179/89
[2021-06-23] MEDS: **hydrALAZINE HCL** 25 MG TAB PO SCH ×3 (05:59→22:00)
[2021-06-23 06:00] VITALS: BP 180/85
[2021-06-23] MEDS: ACETAMINOPHEN TAB 650MG DOSE (2X325MG) PO PRN (06:00)
[2021-06-23] MEDS: ASPIRIN 81MG ENTERIC TABLET PO SCH (08:07)
[2021-06-23] MEDS: LACTOBACILLUS ACIDOPHILUS CAP (BACID) PO SCH ×2 (08:08→17:22)
[2021-06-23] MEDS: CLOPIDOGREL 75 MG TAB PO SCH (08:08)
[2021-06-23] MEDS: METOPROLOL SUCC (TopROL XL) 50MG **XL** TAB PO SCH (08:10)
[2021-06-23] MEDS: amLODIPine 5 MG TAB PO SCH (08:10)
[2021-06-23 22:00] VITALS: BP 150/54
[2021-06-23] MEDS: SIMVASTATIN 20 MG TAB PO SCH (22:14)
[2021-06-24] MEDS: **hydrALAZINE HCL** 25 MG TAB PO SCH ×3 (04:51→21:13)
[2021-06-24 06:00] VITALS: BP 186/67
[2021-06-24 06:38] LABS: HEMATOCRIT 28.7 % (36.0-47.0); HEMOGLOBIN 8.9 g/dl (12.0-15.5); MEAN CORPUSCULAR HEMOGLOBIN 30.6 pg (27.0-33.0); MEAN CORPUSCULAR VOLUME 98.6 fl (80.0-96.0); PLATELET COUNT, AUTOMATED 112 10^3/uL (150-450); RED BLOOD COUNT 2.91 10^6/uL (4.00-5.40)
[2021-06-24 07:05] LABS: BLOOD UREA NITROGEN 34 MG/DL (7-18); CALCIUM LEVEL 7.7 MG/DL (8.8-10.2); CARBON DIOXIDE LEVEL 23 MEQ/L (21-32); CHLORIDE LEVEL 107 MEQ/L (98-107); CREATININE FOR GFR 5.04 MG/DL (0.55-1.30); GLOMERULAR FILTRATION RATE 8.9 (>39); GLUCOSE, FASTING 110 MG/DL (70-100); POTASSIUM SERUM 4.1 MEQ/L (3.5-5.1); SODIUM LEVEL 138 MEQ/L (136-145)
[2021-06-24] MEDS ORDERED: SODIUM CHLORIDE 0.9% 1000ML IV PRN (07:10)
[2021-06-24] MEDS: ASPIRIN 81MG ENTERIC TABLET PO SCH (07:27)
[2021-06-24] MEDS: CLOPIDOGREL 75 MG TAB PO SCH (07:27)
[2021-06-24] MEDS: LACTOBACILLUS ACIDOPHILUS CAP (BACID) PO SCH ×2 (07:27→17:15)
[2021-06-24] MEDS: amLODIPine 5 MG TAB PO SCH (07:28)
[2021-06-24] MEDS: METOPROLOL SUCC (TopROL XL) 50MG **XL** TAB PO SCH (07:28)
[2021-06-24 12:16] LABS: HEPATITIS B SURFACE ANTIGEN NEGATIVE (NEGATIVE)
[2021-06-24] MEDS: SIMVASTATIN 20 MG TAB PO SCH (21:12)
[2021-06-24] MEDS: LOSARTAN 50MG TABLET PO SCH (21:12)
[2021-06-25] MEDS: **hydrALAZINE HCL** 25 MG TAB PO SCH ×3 (05:58→20:28)
[2021-06-25 06:00] VITALS: BP 137/57
[2021-06-25] MEDS: amLODIPine 5 MG TAB PO SCH (09:00)
[2021-06-25] MEDS: ASPIRIN 81MG ENTERIC TABLET PO SCH (09:29)
[2021-06-25] MEDS: CLOPIDOGREL 75 MG TAB PO SCH (09:29)
[2021-06-25] MEDS: LACTOBACILLUS ACIDOPHILUS CAP (BACID) PO SCH ×2 (09:29→17:34)
[2021-06-25] MEDS: METOPROLOL SUCC (TopROL XL) 50MG **XL** TAB PO SCH (09:30)
[2021-06-25] MEDS: SIMVASTATIN 20 MG TAB PO SCH (20:28)
[2021-06-25] MEDS: LOSARTAN 50MG TABLET PO SCH (20:28)
[2021-06-26] MEDS: **hydrALAZINE HCL** 25 MG TAB PO SCH ×3 (06:00→21:45)
[2021-06-26 06:35] VITALS: BP 105/52
[2021-06-26] MEDS ORDERED: SODIUM CHLORIDE 0.9% 1000ML IV PRN (07:15)
[2021-06-26] MEDS: CLOPIDOGREL 75 MG TAB PO SCH (08:38)
[2021-06-26] MEDS: ASPIRIN 81MG ENTERIC TABLET PO SCH (08:38)
[2021-06-26] MEDS: LACTOBACILLUS ACIDOPHILUS CAP (BACID) PO SCH ×2 (08:38→18:22)
[2021-06-26] MEDS: METOPROLOL SUCC (TopROL XL) 50MG **XL** TAB PO SCH (08:39)
[2021-06-26] MEDS: amLODIPine 5 MG TAB PO SCH (08:41)
[2021-06-26] MEDS: SIMVASTATIN 20 MG TAB PO SCH (21:44)
[2021-06-26] MEDS: LOSARTAN 50MG TABLET PO SCH (21:44)
[2021-06-27] MEDS: **hydrALAZINE HCL** 25 MG TAB PO SCH ×3 (05:26→22:00)
[2021-06-27 06:00] VITALS: BP 163/60
[2021-06-27 08:35] LABS: HEMATOCRIT 29.3 % (36.0-47.0); HEMOGLOBIN 9.2 g/dl (12.0-15.5); MEAN CORPUSCULAR HEMOGLOBIN 31.6 pg (27.0-33.0); MEAN CORPUSCULAR HGB CONC 31.4 g/dl (32.0-36.5); MEAN CORPUSCULAR VOLUME 100.7 fl (80.0-96.0); RED BLOOD COUNT 2.91 10^6/uL (4.00-5.40); WHITE BLOOD COUNT 10.5 10^3/uL (4.0-10.0)
[2021-06-27] MEDS: amLODIPine 5 MG TAB PO SCH (09:00)
[2021-06-27 09:10] LABS: CALCIUM LEVEL 8.2 MG/DL (8.8-10.2); CREATININE FOR GFR 2.85 MG/DL (0.55-1.30); GLOMERULAR FILTRATION RATE 17.2 (>39); POTASSIUM SERUM 4.6 MEQ/L (3.5-5.1)
[2021-06-27 09:14] LABS: PLATELET COUNT, AUTOMATED 65 10^3/uL (150-450)
[2021-06-27] MEDS: LACTOBACILLUS ACIDOPHILUS CAP (BACID) PO SCH ×2 (10:05→18:09)
[2021-06-27] MEDS: ASPIRIN 81MG ENTERIC TABLET PO SCH (10:05)
[2021-06-27] MEDS: CLOPIDOGREL 75 MG TAB PO SCH (10:06)
[2021-06-27] MEDS: METOPROLOL SUCC (TopROL XL) 50MG **XL** TAB PO SCH (10:07)
[2021-06-27] MEDS: LOSARTAN 50MG TABLET PO SCH (20:54)
[2021-06-27] MEDS: SIMVASTATIN 20 MG TAB PO SCH (20:54)
[2021-06-28] MEDS: **hydrALAZINE HCL** 25 MG TAB PO SCH ×3 (05:38→22:00)
[2021-06-28 06:00] VITALS: BP 167/55
[2021-06-28] MEDS: amLODIPine 5 MG TAB PO SCH (09:00)
[2021-06-28] MEDS: METOPROLOL SUCC (TopROL XL) 50MG **XL** TAB PO SCH (09:00)
[2021-06-28] MEDS: CLOPIDOGREL 75 MG TAB PO SCH (10:11)
[2021-06-28] MEDS: ASPIRIN 81MG ENTERIC TABLET PO SCH (10:11)
[2021-06-28] MEDS: LACTOBACILLUS ACIDOPHILUS CAP (BACID) PO SCH ×2 (10:11→18:33)
[2021-06-28] MEDS: cloNIDine HCL 0.1 MG/24 HR PATCH TOP SCH (10:12)
[2021-06-28] MEDS: LOSARTAN 50MG TABLET PO SCH (20:32)
[2021-06-28] MEDS: SIMVASTATIN 20 MG TAB PO SCH (20:32)
[2021-06-28] MEDS: ACETAMINOPHEN TAB 650MG DOSE (2X325MG) PO PRN (20:33)
[2021-06-29] MEDS: **hydrALAZINE HCL** 25 MG TAB PO SCH ×3 (05:44→20:40)
[2021-06-29 06:00] VITALS: BP 160/49
[2021-06-29] MEDS: CLOPIDOGREL 75 MG TAB PO SCH (08:41)
[2021-06-29] MEDS: amLODIPine 5 MG TAB PO SCH (08:42)
[2021-06-29] MEDS: ASPIRIN 81MG ENTERIC TABLET PO SCH (08:42)
[2021-06-29] MEDS: LACTOBACILLUS ACIDOPHILUS CAP (BACID) PO SCH ×2 (08:42→17:22)
[2021-06-29] MEDS: METOPROLOL SUCC (TopROL XL) 50MG **XL** TAB PO SCH (08:43)
[2021-06-29] MEDS: SIMVASTATIN 20 MG TAB PO SCH (20:39)
[2021-06-29] MEDS: LOSARTAN 50MG TABLET PO SCH (20:39)
[2021-06-30 05:56] VITALS: BP 147/55
[2021-06-30] MEDS: **hydrALAZINE HCL** 25 MG TAB PO SCH ×3 (06:00→21:45)
[2021-06-30 06:14] LABS: HEMATOCRIT 30.4 % (36.0-47.0); HEMOGLOBIN 9.6 g/dl (12.0-15.5); MEAN CORPUSCULAR HEMOGLOBIN 31.4 pg (27.0-33.0); MEAN CORPUSCULAR HGB CONC 31.6 g/dl (32.0-36.5); MEAN CORPUSCULAR VOLUME 99.3 fl (80.0-96.0); PLATELET COUNT, AUTOMATED 130 10^3/uL (150-450); RED BLOOD COUNT 3.06 10^6/uL (4.00-5.40); WHITE BLOOD COUNT 5.7 10^3/uL (4.0-10.0)
[2021-06-30 06:51] LABS: CALCIUM LEVEL 8.1 MG/DL (8.8-10.2); CREATININE FOR GFR 6.49 MG/DL (0.55-1.30); GLOMERULAR FILTRATION RATE 6.6 (>39); POTASSIUM SERUM 5.3 MEQ/L (3.5-5.1)
[2021-06-30] MEDS ORDERED: SODIUM CHLORIDE 0.9% 1000ML IV PRN (07:05)
[2021-06-30] MEDS: CLOPIDOGREL 75 MG TAB PO SCH (08:15)
[2021-06-30] MEDS: LACTOBACILLUS ACIDOPHILUS CAP (BACID) PO SCH ×2 (08:15→17:46)
[2021-06-30] MEDS: ASPIRIN 81MG ENTERIC TABLET PO SCH (08:15)
[2021-06-30] MEDS: amLODIPine 5 MG TAB PO SCH (08:16)
[2021-06-30] MEDS: METOPROLOL SUCC (TopROL XL) 50MG **XL** TAB PO SCH (08:16)
[2021-06-30] MEDS: DARBEPOETIN 100 MCG/0.5 ML *DIALYSIS* SYRINGE (J0882) IV SCH (09:30)
[2021-06-30] MEDS ORDERED: HYOSCYAMINE SULFATE 0.125 MG SUBL TABLET PO PRN (11:50)
[2021-06-30] MEDS ORDERED: BISACODYL 10 MG SUPP PR PRN (11:50)
[2021-06-30] MEDS ORDERED: LORazepam 1 MG TAB PO PRN (11:50)
[2021-06-30] MEDS ORDERED: ATROPINE SULFATE 1% OP SOLN 2 ML BTL SL PRN (11:50)
[2021-06-30] MEDS ORDERED: SCOPOLAMINE 1MG TRANSDERMAL PATCH TOP PRN (11:50)
[2021-06-30] MEDS ORDERED: MORPHINE 10MG/0.5ML ORAL CONCENTRATE SOLUTION U/D SL PRN (11:50)
[2021-06-30] MEDS: SIMVASTATIN 20 MG TAB PO SCH (20:25)
[2021-06-30] MEDS: LOSARTAN 50MG TABLET PO SCH (20:28)
[2021-06-30 21:45] VITALS: BP 147/55
[2021-07-02] MEDS ORDERED: MORP1SOL5 PO (10:21)
[2021-07-02] MEDS ORDERED: ATIV1TAB10 PO (10:21)
[2021-07-02] MEDS ORDERED: HYOS125TA PO (10:21)
[2021-07-02] MEDS ORDERED: TRAN1DIS4 TOP (10:21)
== END 2021-07-02 13:44 | disposition hospice, home (50) | DRG 314 ==
LOC: M PCU 13:02 → M MS5PR 05-30 13:10
PROVIDERS: ADMIT Internal Medicine; ATTEND General Practice
PROC: 5A1D70Z Performance of Urinary Filtration, Intermittent, Less than 6 Hours Per Day (ICD-10-PCS; principal; 2021-05-25)
PROC: 02HV33Z Insertion of Infusion Device into Superior Vena Cava, Percutaneous Approach (ICD-10-PCS; 2021-05-25)
PROC: 0JH63XZ Insertion of Tunneled Vascular Access Device into Chest Subcutaneous Tissue and Fascia, Percutaneous Approach (ICD-10-PCS; 2021-05-26)
PROC: 02HV33Z Insertion of Infusion Device into Superior Vena Cava, Percutaneous Approach (ICD-10-PCS; 2021-05-26)
PROC: B41GYZZ Fluoroscopy of Left Lower Extremity Arteries using Other Contrast (ICD-10-PCS; 2021-05-26)
DX: T82.856A Stenosis of peripheral vascular stent, initial encounter (principal); N18.6 End stage renal disease; N17.9 Acute kidney failure, unspecified; E87.2 Acidosis; I16.1 Hypertensive emergency; I13.2 Hypertensive heart and chronic kidney disease with heart failure and with stage 5 chronic kidney disease, or end stage renal disease; I67.4 Hypertensive encephalopathy; N39.0 Urinary tract infection, site not specified; E46 Unspecified protein-calorie malnutrition; K92.2 Gastrointestinal hemorrhage, unspecified; K55.1 Chronic vascular disorders of intestine; Z66 Do not resuscitate; Z86.718 Personal history of other venous thrombosis and embolism; E78.5 Hyperlipidemia, unspecified; Z95.5 Presence of coronary angioplasty implant and graft; E87.5 Hyperkalemia; I71.4 Abdominal aortic aneurysm, without rupture; Z79.82 Long term (current) use of aspirin; Z79.899 Other long term (current) drug therapy; Z88.8 Allergy status to other drugs, medicaments and biological substances; Z96.0 Presence of urogenital implants; R19.7 Diarrhea, unspecified; Z53.09 Procedure and treatment not carried out because of other contraindication; D69.6 Thrombocytopenia, unspecified; Z87.891 Personal history of nicotine dependence; D63.1 Anemia in chronic kidney disease; L89.159 Pressure ulcer of sacral region, unspecified stage; L89.619 Pressure ulcer of right heel, unspecified stage; L89.629 Pressure ulcer of left heel, unspecified stage; B96.20 Unspecified Escherichia coli [E. coli] as the cause of diseases classified elsewhere; M48.02 Spinal stenosis, cervical region; Z99.2 Dependence on renal dialysis; Z72.3 Lack of physical exercise; I50.9 Heart failure, unspecified